=== PATIENT | female | born 1995 | race Caucasian/White ===

== ENCOUNTER 2018-11-26 07:45 | Day surgery (SDC) | payer OTHER ==
[~2018-11-26 07:45] MED LIST: PROPOFOL INJ 200 MG/20 ML VIAL IV ONE
[2018-11-26 10:28] VITALS: BP 112/61
--- NOTE | 2018-11-26 13:20 | Operative Report ---
Operative Report DATE OF SURGERY: 11/26/18 Operative Report: The risks benefits and alternatives of the procedure explained to the patient in detail and informed consent is obtained.A GIF Olympus video scope was inserted into the patient's mouth and hypopharynx, the esophagus is identified intubated and insufflated, the scope was then advanced through the esophagus stomach and duodenum ,retroflexion maneuver is done ,the esophagus stomach and first and second portions of the duodenum examined. PREOPERATIVE DIAGNOSIS: Dysphagia POSTOPERATIVE DIAGNOSIS: Esophagitis versus Galvez's status post biopsy. Gastritis status post biopsy rule out Helicobacter pylori OPERATION: EGD with biopsy SURGEON: PAXTON PATEL ANESTHESIA: LMAC TISSUE REMOVED OR ALTERED: As noted above. COMPLICATIONS: None. ESTIMATED BLOOD LOSS: None. INTRAOPERATIVE FINDINGS: As noted above. PROCEDURE: Patient tolerated the procedure well. No immediate postprocedure complications are noted. Patient discharged in good condition. Discharge date 11/26/2018. Discharge diet: Regular. Discharge activity: Regular. 2 to 3-week follow-up to discuss findings. Patient is instructed to call the office or proceed to the emergency room should there be any further proximal questions. Wait on the pathology.
== END 2018-11-26 10:13 | disposition home or self-care (01) ==
LOC: END 07:45
PROVIDERS: ATTEND Internal Medicine Gastroenterology
DX: K20.9 Esophagitis, unspecified (principal); K29.50 Unspecified chronic gastritis without bleeding; D64.9 Anemia, unspecified; J45.909 Unspecified asthma, uncomplicated
CPT/HCPCS: 43239; 88342 ×2; 88305 ×2; J2704; 731

== ENCOUNTER 2019-08-27 09:06 | Emergency (ER) | payer OTHER ==
[2019-08-27] MEDS ORDERED: NORMAL SALINE 1000 ML 1,000 ML IV ONE (09:59)
--- NOTE | 2019-08-27 09:59 | ER Document Report ---
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 She states she has passed out in the past from orthostatic hypotension. Her blood pressure is normal at this time. Patient is alert oriented respirations regular nonlabored. Her Accu-Chek is 81 at this time. I have greeted and performed a rapid initial assessment of this patient. A comprehensive ED assessment and evaluation of the patient, analysis of test results and completion of medical decision making process will be conducted by an additional ED providers. TRAVEL OUTSIDE OF THE [place] IN LAST 30 DAYS: No - Related Data Allergies/Adverse Reactions: No Known Allergies Allergy (Verified 11/26/18 08:16) Past Medical History - Social History Frequency of alcohol use: None Drug Abuse: None - Past Medical History Cardiac Medical History: Denies: Hx Coronary Artery Disease, Hx Heart Attack, Hx Hypertension Pulmonary Medical History: Denies: Hx Asthma, Hx Bronchitis, Hx COPD, Hx Pneumonia Neurological Medical History: Denies: Hx Cerebrovascular Accident, Hx Seizures Musculoskeltal Medical History: Denies Hx Arthritis - Immunizations Hx Diphtheria, Pertussis, Tetanus Vaccination: Yes Physical Exam - Vital signs Vitals: Temp Pulse Resp BP Pulse Ox 98.1 F 72 20 124/63 100 08/27/19 09:10 08/27/19 09:10 08/27/19 09:10 08/27/19 09:10 08/27/19 09:10 Course - Vital Signs Vital signs: Temp Pulse Resp BP Pulse Ox 98.1 F 72 20 124/63 100 08/27/19 09:10 08/27/19 09:10 08/27/19 09:10 08/27/19 09:10 08/27/19 09:10 Doctor's Discharge - Discharge Referrals: RAHAT KESSLER DO [Primary Care Provider] - Follow up as needed
[2019-08-27 11:02] LABS: APPEARANCE,URINE CLOUDY; BILIRUBIN,URINE NEGATIVE (NEGATIVE); COLOR,URINE YELLOW; GLUCOSE, URINE NEGATIVE (NEGATIVE); KETONES,URINE TRACE mg/dL (NEGATIVE); LEUKOCYTE ESTERASE,URINE TRACE (NEGATIVE); NITRITE,URINE NEGATIVE (NEGATIVE); PROTEIN,URINE 30 mg/dL (NEGATIVE); URINE SPECIFIC GRAVITY 1.026; UROBILINOGEN,URINE NEGATIVE mg/dL (<2.0)
[2019-08-27 11:03] LABS: ABSOLUTE LYMPHOCYTES (AUTO) 1.2 10^3/uL (0.5-4.7); ABSOLUTE MONOCYTES (AUTO) 0.8 10^3/uL (0.1-1.4); ABSOLUTE NEUT (AUTO) 7.9 10^3/uL (1.7-8.2); BASOPHILS % (AUTO) 0.2 % (0-2); EOSINOPHILS % (AUTO) 0.3 % (0-6); HEMATOCRIT 40.1 % (36.0-47.0); HEMOGLOBIN 14.4 g/dL (12.0-15.5); LYMPHOCYTES % (AUTO) 12.4 % (13-45); MEAN CORPUSCULAR HEMOGLOBIN 32.2 pg (27.0-33.4); MEAN CORPUSCULAR VOLUME 90 fl (80-97); MONOCYTES % (AUTO) 7.7 % (3-13); PLATELET COUNT 234 10^3/uL (150-450); RED BLOOD COUNT 4.48 10^6/uL (3.72-5.28); RED CELL DISTRIBUTION WIDTH 13.7 % (11.5-14.0); SEGMENTED NEUTROPHILS % (AUTO) 79.4 % (42-78); TOTAL CELLS COUNTED % (AUTO) 100 %
[2019-08-27 11:18] LABS: ALBUMIN 4.8 g/dL (3.5-5.0); ALKALINE PHOSPHATASE 54 U/L (38-126); ANION GAP 12 (5-19); ASPARTATE AMINO TRANSFERASE 27 U/L (14-36); BILIRUBIN,DIRECT 0.2 mg/dL (0.0-0.4); BILIRUBIN,TOTAL 0.4 mg/dL (0.2-1.3); BLOOD UREA NITROGEN 10 mg/dL (7-20); CARBON DIOXIDE 26 mmol/L (22-30); CHLORIDE 99 mmol/L (98-107); GLUCOSE 81 mg/dL (75-110); POTASSIUM 4.2 mmol/L (3.6-5.0); TOTAL PROTEIN 8.2 g/dL (6.3-8.2)
--- NOTE | 2019-08-27 12:18 | RADIOLOGY REPORT (SQ) ---
EXAM DESCRIPTION: U/S [id number] TRNABD 1GES W/ODOP COMPLETED DATE/TIME: 08/27/2019 12:04 pm REASON FOR STUDY: Syncopal episode COMPARISON: None. TECHNIQUE: Transvaginal static and realtime grayscale images acquired of the pelvis. Additional chance cted spectral and color Doppler images recorded. All images stored on PACs. bHCG: Not available. CLINICAL DATES: 11 weeks 6 days LIMITATIONS: None. FINDINGS: FETUS: Single Living intrauterine . ULTRASOUND EGA: 11 weeks 5 days. ULTRASOUND JUDITH: 03/12/2020 EFW: Not applicable less than 20 weeks. CRL: 5.0 cm. FHR: 150 beats per minute. SURVEY: No visualized anomalies. AMNIOTIC FLUID: Adequate amount. PLACENTA: Not yet developed due to early gestation. SUBCHORIONIC BLEED: No. SIZE OF BLEED: Not applicable. UTERUS: No masses. No anomalies. CERVICAL LENGTH: 3.4 cm. Closed. RIGHT ADNEXA: Ovary not identified due to poor acoustical window. No adnexal free fluid. No adnexal masses. LEFT ADNEXA: Ovary not identified due to poor acoustical window. No adnexal free fluid. No adnexal masses. FREE FLUID: None. OTHER: No other significant finding. IMPRESSION: LIVING INTRAUTERINE . EGA 11 weeks 5 days. Trimester of : First trimester - 0 to 13 weeks. TECHNICAL DOCUMENTATION: JOB ID: [id number] [employer]- All Rights Reserved rev Reading location - IP/workstation name: [email or web address]
[2019-08-27 13:04] VITALS: BP 117/69
--- NOTE | 2019-08-27 16:22 | EKG REPORT ---
SEVERITY:- OTHERWISE NORMAL ECG - SINUS ARRHYTHMIA, RATE 53-73 : Confirmed by: Edelmira Myles MD 27-Aug-2019 16:21:49
--- NOTE | 2019-08-27 18:03 | ER Document Report ---
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 Patient describes that she felt dizzy, light headed and does not remember anything until being in the hallway after the procedure. Butadiene Converter Helper stated that she was told patient was pale, diaphoretic and was "reaching back for the rail". They escorted her out of the room and she passed out. No reports of her falling down or hitting her head. Patient states that she has had normal fluid and food intake prior to incident. Patient denies headache, vertigo, and seizure history. Patient mentions history of vasovagal syncope starting at the age of 15. TRAVEL OUTSIDE OF THE [place] IN LAST 30 DAYS: No - Related Data Allergies/Adverse Reactions: No Known Allergies Allergy (Verified 11/26/18 08:16) Past Medical History - General Information source: Patient - Social History Smoking Status: Never Smoker Cigarette use (# per day): No Frequency of alcohol use: None Drug Abuse: None Family History: Reviewed & Not Pertinent Patient has suicidal ideation: No Patient has homicidal ideation: No Surgical Hx: Negative - Immunizations Hx Diphtheria, Pertussis, Tetanus Vaccination: Yes Review of Systems - Review of Systems Constitutional: See HPI, Diaphoresis - Prior to arrival EENT: No symptoms reported Cardiovascular: See HPI, Syncope, Lightheaded Respiratory: No symptoms reported Gastrointestinal: No symptoms reported Genitourinary: No symptoms reported Female Genitourinary: See HPI, - 11 weeks 5 days Musculoskeletal: No symptoms reported Skin: No symptoms reported Hematologic/Lymphatic: No symptoms reported Neurological/Psychological: See HPI, Lost consciousness -: Yes All other systems reviewed and negative Physical Exam - Vital signs Vitals: Temp Pulse Resp BP Pulse Ox 98.1 F 72 20 124/63 100 08/27/19 09:10 08/27/19 09:10 08/27/19 09:10 08/27/19 09:10 08/27/19 09:10 - Notes Notes: Physical Exam: General: Alert, appears well. HEENT: Normocephalic. Atraumatic. PERRL. Mild lateral gaze nystagmus. Oropharynx clear. TMs bulging worse on the right side than the left. Neck: Supple. Non-tender. Respiratory: No respiratory distress. Clear and equal breath sounds bilaterally. Cardiovascular: Regular rate and rhythm. Abdominal: Normal Inspection. Non-tender. No distension. Normal Bowel Sounds. Back: No gross abnormalities. Extremities: Moves all four extremities. Upper extremities: Normal inspection. Normal ROM. Lower extremities: Normal inspection. No edema. Normal ROM. Neurological: Normal cognition. AAOx4. Normal speech. Psychological: Normal affect. Normal Mood. Skin: Warm. Dry. Normal color. Course - Re-evaluation Re-evalutation: 08/27/19 12:39 Patient has remained stable since her event that occurred in the x-ray department today. 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 Patient felt weak and realizes she was about to faint and stepped out and she was surrounded by other staff members and so when she did lose consciousness she was being placed on a gurney there was no head injury no seizure activity. Aicha ayon regained her consciousness after a brief loss of consciousness moment. There was no tongue biting or sphincter incontinence denied any chest pain headache tachycardias or irregular heartbeats. Patient has had events of this nature in the past which seems to be not far into her. She reports that as far back as a 15 she is noted that on occasion she has these vasovagal syncope spells. - Vital Signs Vital signs: Temp Pulse Resp BP Pulse Ox 98.1 F 56 L 15 117/69 100 08/27/19 13:00 08/27/19 10:49 08/27/19 13:00 08/27/19 13:00 08/27/19 13:00 - Laboratory Result Diagrams: 08/27/19 10:40 08/27/19 10:40 Laboratory results interpreted by me: 08/27/19 08/27/19 08/27/19 10:30 10:40 10:40 Lymph % (Auto) 12.4 L Seg Neutrophils % 79.4 H Sodium 136.9 L Creatinine 0.43 L Urine Protein 30 H Urine Ketones TRACE H Ur Leukocyte Esterase TRACE H Urine Ascorbic Acid 40 H - Diagnostic Test Radiology reviewed: Image reviewed, Reports reviewed Radiology results interpreted by me: 08/27/19 12:38 Pelvic ultrasound disclosed normal gestation and to reveal intrauterine 11 weeks 5 days no other acute abnormality noted. - EKG Interpretation by Me Additional EKG results interpreted by me: 08/27/19 12:38 EKG 12-lead done at 1022 today normal sinus rhythm rate of [address]-T wave changes. Discharge - Discharge Clinical Impression: Syncope, vasovagal, First trimester , Labyrinthitis of both ears Condition: Stable Disposition: HOME, SELF-CARE Additional Instructions: Syncopal Episode Syncope (fainting or near-fainting) can occur from many different health problems. Or it can be a simple fainting spell requiring no treatment. It is safe for you to go home, but further evaluation will likely be necessary. Your work-up may include tests for internal bleeding, heart disease, medication problems, or near-strokes. Tests are not always required, however, depending on the nature of your problem. The warning signs of an impending faint include: dizziness, lightheadedness, nausea, hot flashes, tingling, and weakness. If this happens, lay down and put your feet up, then wait until all of these symptoms have passed before standing up again. If these episodes become recurrent, or if you develop chest pain, heart palpitations, mental confusion, blurred vision, or headache, then you should call the physician, or go to the emergency room. Today you had a vasovagal syncopal episode which was brief. There appears to be no cardiac event associated with this or any neurological event associated with this episode today. EKG neuro exam laboratories all within normal limits. No evidence for stroke on the neuro exam. No evidence for cardiac event on lab work or EKG. Much easier 11 weeks 5 days there was no consequence to your based on your event today. Ultrasound did not show any acute process. We also learned today that you have fluid behind your eardrums consistent with labyrinthitis. We did note that you have nystagmus on lateral gaze again this may have contributed as well to this vasovagal event that occurred today. Follow-up with your primary care and ROAD PATCHER a during regarding this episode. There was no sugar problem noted as well on your exam Inasmuch as you are at this time we are not adding any new prescriptions to your current medications are vitamins. Advised to be well-hydrated at all times. Referrals: RAHAT KESSLER, [NO LOCAL MD] - Follow up as needed ED NIH Stroke Scale - NIH Stroke Scale *: 1. NIH scale should be completed with appropriate accompanying assessment tools. *: 2. The NIH should reflect what the patient is capable of doing and should not be coached by the clinician. 1a. Level of Consciousness: 0=Alert;keenly responsive -: 1=Drowsy -: 2=Obtunded -: 3=Coma/unresponsive or reflex to noxious stimuli. 1b. Orientation Questions: a. What month is it? -: b. How old are you? -: 0=Answers both questions correctly. -: 1=Answers one question correctly or patient is intubated or has orotracheal trauma. -: 2=Answers neither question correctly. 1b. Responses: 0 1c. Response to commands: a. Open and close eyes? -: b. Embosser Apprentice and release hand? -: Credit is given despite weakness. Demonstration of task is permitted. Substitute command if hands cannot be used. -: 0=Performs both tasks correctly -: 1=Performs one task correctly -: 2=Performs neither task correctly 1c. Responses: 0 2. Gaze: Establish eye contact and instruct patient to "Follow my finger" -: 0=Normal -: 1=Partial gaze palsy. Gaze is abnormal in one or both eyes, but where forced deviation or total gaze paresis is not present. -: 2=Forced deviation or total gaze paresis. 2. Responses: 0 3. Visual Schaeffer: Sees fingers in all four quadrants. -: 0=No visual loss. -: 1=Partial hemianopsia. -: 2=Complete hemianopsia. -: 3=Bilateral hemianopsia (including Cortical blindness) 3. Responses: 0 4. Facial Movement: Instruct patient to: -: a. Show me your teeth -: b. Raise your eyebrows -: c. Close your eyes -: d. Smile -: 0=Normal symmetrical movement -: 1=Minor paralysis (flattened nasolabial fold, asymmetry on smiling). -: 2=Partial paralysis (total or near total paralysis of lower face). -: 3=Complete paralysis of upper and lower face 4. Responses: 0 5. Motor functions (left arm): Alternate sides and extend each arm with palms down (90 degrees if sitting or 45 degrees for supine). -: 0=No drift;limb holds for full 10 seconds. -: 1=Drift; limb holds but drifts down before full 10 seconds, but does not hit bed. -: 2=Some effort against gravity; limb cannot get to or maintain position. -: 3=No effort against gravity; limb falls. -: 4=No movement. -: UN=Amputation, joint fusion, explain in comments. 5. Responses (left arm): 0 5. Motor Functions (right arm): Alternate sides and extend each arm with palms down (90 degrees if sitting or 45 degrees for supine). -: 0=No drift;limb holds for full 10 seconds. -: 1=Drift; limb holds but drifts down before full 10 seconds, but does not hit bed. -: 2=Some effort against gravity; limb cannot get to or maintain position. -: 3=No effort against gravity; limb falls. -: 4=No movement. -: UN=Amputation, joint fusion, explain in comments. 5. Responses (right arm): 0 6. Motor Functions (left leg): With patient lying supine, alternate sides and extend each leg (30 degrees always while supine). -: 0=No drift, leg holds position for full 5 seconds -: 1=Drift; leg falls before full 5 seconds but does not hit bed. -: 2=Some effort against gravity, leg falls to bed but some effort against gravity. -: 3=No effort against gravity, leg falls to bed immediately. -: 4=No movement. -: UN=Amputation, joint fusion; explain in comments. 6. Responses (left leg): 0 6. Motor Functions (right leg): With patient lying supine, alternate sides and extend each leg (30 degrees always while supine). -: 0=No drift, leg holds position for full 5 seconds -: 1=Drift; leg falls before full 5 seconds but does not hit bed. -: 2=Some effort against gravity, leg falls to bed but some effort against gravity. -: 3=No effort against gravity, leg falls to bed immediately. -: 4=No movement. -: UN=Amputation, joint fusion; explain in comments. 6. Responses (right leg): 0 7. Limb Ataxia: With eyes open instruct patient to: -: a. "Touch your finger to your nose". -: b. "Touch your heel to your lassiter" -: 0=Absent -: 1=Present in one limb. -: 2=Present in two limbs. -: UN=Amputation or joint fusion; explain in comments. 7. Responses: 0 8. Sensory: Test sensation using pinprick or noxious stimuli. Test as many body parts as possible. -: 0=Normal;no sensory loss -: 1=Mile to moderate sensory loss (patient feels pin prick but is less sharp on affected side). -: 2=Severe or total sensory loss. 8. Responses: 0 9. Best Language: Instruct patient to: -: a. "Describe what you see in this picture." -: b. "Name the items in this picture." -: c. "Read these sentences." -: 0=No aphasia, normal -: 1=Mild to moderate aphasia. -: 2=Severe aphasia -: 3=Mute, global aphasia, no usable speech or auditory comprehension. 9. Responses: 0 10. Articulation, Dysarthia: Instruct patient to: -: "Read these words" or "Repeat these words" -: 0=Normal -: 1=Mild to moderate; patient may slur some words but can be understood without difficulty. -: 2=Severe; patients speech so slurred as to be unintelligible in the absence of dysphasia. -: UN=Intubated or other physical barrier, explain in comments. 10. Responses: 0 11. Extinction or inattention: 0=No abnormality -: 1= Visual, tactile, auditory, spatial, or personal inattention or extinction to bilateral simulation in one or the sensory modalities. -: 2=Profound carol-inattention or carol-inattention to more than one modality; does not recognize own hand. 11. Responses: 0 Total Score: 0 I personally performed the services described in the documentation, reviewed and edited the documentation which was dictated to the scribe in my presence, and it accurately records my words and actions.
== END 2019-08-27 13:15 | disposition home or self-care (01) ==
LOC: ER 09:06
DX: O26.891 Other specified pregnancy related conditions, first trimester (principal); R55 Syncope and collapse; H83.03 Labyrinthitis, bilateral; R42 Dizziness and giddiness; H55.00 Unspecified nystagmus; Z3A.11 11 weeks gestation of pregnancy
CPT/HCPCS: 93005; 99284; 96360; 36415; 82962; 85025; 80053; 81001; 84484; 76801; 93010; J7030

== ENCOUNTER 2020-01-16 19:59 | Outpatient (CLI) | payer OTHER ==
[2020-01-16 20:47] LABS: BACTERIA (WET MOUNT) 4+ BACTERIA SEEN; EPITHELIALS (WET MOUNT) 3+ EPITHELIALS SEEN; RBCS (WET MOUNT) FEW RBCS SEEN; T.VAGINALIS (WET MOUNT) NO TRICHOMONAS SEEN; WBCS (WET MOUNT) 3+ WBCS SEEN; YEAST (WET MOUNT) NO YEAST SEEN
[2020-01-16 20:48] LABS: APPEARANCE,URINE CLEAR; BILIRUBIN,URINE NEGATIVE (NEGATIVE); COLOR,URINE STRAW; GLUCOSE, URINE 50 mg/dL (NEGATIVE); KETONES,URINE NEGATIVE (NEGATIVE); LEUKOCYTE ESTERASE,URINE NEGATIVE (NEGATIVE); NITRITE,URINE NEGATIVE (NEGATIVE); PROTEIN,URINE NEGATIVE (NEGATIVE); URINE SPECIFIC GRAVITY 1.005; UROBILINOGEN,URINE NEGATIVE mg/dL (<2.0)
[2020-01-16 21:13] LABS: URINE AMPHETAMINES SCREEN NEGATIVE; URINE BARBITURATES SCREEN NEGATIVE; URINE BENZODIAZEPINES SCREEN NEGATIVE; URINE COCAINE SCREEN NEGATIVE; URINE MARIJUANA (THC) SCREEN NEGATIVE; URINE METHADONE SCREEN NEGATIVE; URINE PHENCYCLIDINE SCREEN NEGATIVE
[2020-01-16] MEDS ORDERED: FOSFOMYCIN TROMETHAMINE 3 GM PACKET PO ONE (21:45)
[2020-01-16 22:12] LABS: CHLAM PCR NOT DETECTED (NOT DETECT)
== END 2020-01-16 21:30 | disposition home or self-care (01) ==
LOC: LC 19:59
PROVIDERS: ATTEND Obstetrics & Gynecology Gynecology
DX: O26.853 Spotting complicating pregnancy, third trimester (principal); Z3A.32 32 weeks gestation of pregnancy
CPT/HCPCS: 36415; 80307; 81001; 87081; 87086; 87210; 87491; 87591

== ENCOUNTER 2020-01-29 00:36 | Outpatient (CLI) | payer OTHER ==
[2020-01-29 01:16] LABS: APPEARANCE,URINE CLEAR; BILIRUBIN,URINE NEGATIVE (NEGATIVE); COLOR,URINE YELLOW; GLUCOSE, URINE NEGATIVE (NEGATIVE); KETONES,URINE 20 mg/dL (NEGATIVE); LEUKOCYTE ESTERASE,URINE NEGATIVE (NEGATIVE); NITRITE,URINE NEGATIVE (NEGATIVE); PROTEIN,URINE NEGATIVE (NEGATIVE); URINE SPECIFIC GRAVITY 1.013; UROBILINOGEN,URINE NEGATIVE mg/dL (<2.0)
--- NOTE | 2020-01-29 01:57 | Non Stress Test Report ---
Non Stress Test Datetime Report Generated by CPN: 01/29/2020 01:57 DEMOGRAPHIC EGA NST: 33.5 MONITORING Monitor Explained: Monitor Explained; Test Explained; Patient Verbalized Understanding Time on Monitor: 01/29/2020 00:51 Time off Monitor: 01/29/2020 01:51 NST Duration: 60 NST INTERVENTIONS NST Interventions: PO Hydration; Reposition Patient Physician Notified NST: Dr Bk BABY A: [id number] BABY A Movement : Present Contraction Frequency : 0 FHR Baseline : 120 Accelerations : 15X15 Decelerations : None Variability : Moderate 6-25bpm NST Review: Meets Criteria for Reactive NST NST Review and Verified By : , RN NST Results: Reactive NST REPORT Report Trigger: Send Report
[2020-01-29 02:02] LABS: URINE AMPHETAMINES SCREEN NEGATIVE; URINE BARBITURATES SCREEN NEGATIVE; URINE BENZODIAZEPINES SCREEN NEGATIVE; URINE COCAINE SCREEN NEGATIVE; URINE MARIJUANA (THC) SCREEN NEGATIVE; URINE METHADONE SCREEN NEGATIVE; URINE PHENCYCLIDINE SCREEN NEGATIVE
== END 2020-01-29 01:56 | disposition home or self-care (01) ==
LOC: LC 00:36
PROVIDERS: ATTEND Obstetrics & Gynecology
DX: O36.8130 Decreased fetal movements, third trimester, not applicable or unspecified (principal); Z3A.33 33 weeks gestation of pregnancy
CPT/HCPCS: 80307; 81001

== ENCOUNTER 2020-03-18 07:04 | Inpatient (IN) | payer OTHER ==
[2020-03-18] MEDS ORDERED: OXYTOCIN/0.9 % SODIUM CHLORIDE 30 UNIT/500 ML RTUINJ IV PRN (07:18)
[2020-03-18] MEDS ORDERED: DINOPROSTONE 10 MG VAGINAL INSERT.SR PV PRN (07:18)
[2020-03-18 07:44] LABS: APPEARANCE,URINE CLOUDY; BILIRUBIN,URINE NEGATIVE (NEGATIVE); COLOR,URINE YELLOW; GLUCOSE, URINE NEGATIVE (NEGATIVE); KETONES,URINE NEGATIVE (NEGATIVE); LEUKOCYTE ESTERASE,URINE SMALL (NEGATIVE); NITRITE,URINE NEGATIVE (NEGATIVE); PROTEIN,URINE NEGATIVE (NEGATIVE); URINE SPECIFIC GRAVITY 1.016; UROBILINOGEN,URINE NEGATIVE mg/dL (<2.0)
[2020-03-18] MEDS ORDERED: LIDOCAINE 1% INJ-PF (10 MG/ML) 30 ML SDV ONE (07:58)
[2020-03-18] MEDS ORDERED: OXYTOCIN/0.9 % SODIUM CHLORIDE 30 UNIT/500 ML RTUINJ ONE (07:58)
[2020-03-18] MEDS ORDERED: OXYTOCIN 10 UNIT/ML VIAL ONE (07:58)
[2020-03-18] MEDS ORDERED: MISOPROSTOL 0.2 MG TABLET ONE (07:58)
[2020-03-18] MEDS ORDERED: DINOPROSTONE 10 MG VAGINAL INSERT.SR ONE (07:59)
[2020-03-18 08:04] LABS: URINE AMPHETAMINES SCREEN NEGATIVE; URINE BARBITURATES SCREEN NEGATIVE; URINE BENZODIAZEPINES SCREEN NEGATIVE; URINE COCAINE SCREEN NEGATIVE; URINE MARIJUANA (THC) SCREEN NEGATIVE; URINE METHADONE SCREEN NEGATIVE; URINE PHENCYCLIDINE SCREEN NEGATIVE
[2020-03-18 08:07] LABS: HEMATOCRIT 38.2 % (36.0-47.0); HEMOGLOBIN 13.3 g/dL (12.0-15.5); MEAN CORPUSCULAR HGB CONC 34.7 g/dL (32.0-36.0); MEAN CORPUSCULAR VOLUME 89 fl (80-97); PLATELET COUNT 211 10^3/uL (150-450); RED BLOOD COUNT 4.28 10^6/uL (3.72-5.28); RED CELL DISTRIBUTION WIDTH 15.3 % (11.5-14.0); WHITE BLOOD COUNT 8.7 10^3/uL (4.0-10.5)
[2020-03-18] MEDS: RINGERS SOLUTION,LACTATED 1,000 ML IV PRN ×2 (09:02→14:34)
--- NOTE | 2020-03-18 13:02 | Admission Physical ---
Datetime Report Generated by CPN: 03/18/2020 13:02 CURRENT ADMISSION Hx Assessment: The History has been Reviewed and is Current Chief Complaint: Scheduled Induction of Labor Indication for Induction: Post Dates Admit Impression : Term, Intrauterine Admit Plan: Admit to Unit; Initiate Labor Induction Protocol ALLERGIES Medication Allergies: No Medication Allergies: No Known Allergies (03/18/2020) Latex: No Latex Allergies OBSTETRICAL HISTORY EDC: 03/13/2020 00:00 : 1 Para: 0 Term: 0 : 0 SAB: 0 IAB: 0 Ectopic: 0 Livin Cesareans: 0 VBACs: 0 Multiple Births: 0 Gestational Diabetes: No Rh Sensitization: No Incompetent Cervix: No NICOLE: No Infertility: No ART Treatment: No Uterine Anomaly: No IUGR: No Hx Previous C/S: No Hx Loss/Stillborn: No PIH: No Hx : No Placenta Previa/Abruption: No Depression/PP Depression: Yes PTL/PROM: No Post Hemorrhage: No Current Procedures: Ultrasound; NST Obstetrical History Comments: Primigravida, Sees psychology . [facility] 9+1 SEE RECORDS Cigarettes: Never Smoker. [id number] Advised to Stop: No MEDICAL HISTORY Diabetes: No Blood Transfusion: No Pulmonary Disease (Asthma, TB): No Breast Disease: No Hypertension: No Post Doctoral Researcher Surgery: No Heart Disease: No Hosp/Surgery: No Autoimmune Disorder: No Anesthetic Complications: No Kidney Disease: No Abnormal Pap Smear: No Neuro/Epilepsy: Yes Psychiatric Disorders: Yes Other Medical Diseases: Yes Hepatitis/Liver Disease: No Significant Family History: Yes Varicosities/Phlebitis: No Trauma/Violence : No Thyroid Dysfunction: No Medical History Comments: h/o bulemia, TBI 2008, 2010 and 2013, mother last year. Restless leg syndrome. IBS, Insulin resistance and ADHD INFECTIOUS HISTORY Gonorrhea: No Genital Herpes: No Chlamydia: No Tuberculosis: No Syphilis: No Hepatitis: No HIV/AIDS Exposure: No HPV: No PHYSICAL EXAM General: Normal Neurologic: Normal Heart: Normal Lungs: Normal Vital Signs: Reviewed; Within Normal Limits VAGINAL EXAM Contraction Comments: irregular MEMBRANES Membranes: Intact FETUS A EGA: 40.5 Monitoring: External US Decelerations: None FHR Category: Category I Estimated Weight (gm): 4127 Presentation: Vertex Admit Comment: 24yo G1 @ 40w5d into L_D for IOL. Pt is A neg, RI, GBS negative. complicated by hx of TBI x3, Restless leg syndrome, IBS, ADHD and insulin resistance. Pt with elevated 1hr GTT in and normal 3hr. Also hx of bulemia. Plan was to have cervidil placed last night but patient was not admitted until this am at which time cervidil was placed by RN. Cephalic presentation verified via U/S. Dr. Bourgeois is the OB regional wildlife agent today and aware of admission and pt status. PLANS FOR LABOR AND DELIVERY Labor and Delivery: None Pain Management: Medications Feeding Preference: Breast INFORMED CONSENT Assignment: Misti Bourgeois MD Signature: with User ID: Rip : with User ID: [email or web address]
[2020-03-18] MEDS ORDERED: MISOPROSTOL 0.1 MG TABLET ONE ×2 (20:18→21:27)
[2020-03-18] MEDS ORDERED: MISOPROSTOL 0.1 MG TABLET PO ONE (21:15)
[2020-03-18] MEDS ORDERED: MISOPROSTOL 0.1 MG TABLET PV ONE (21:16)
[2020-03-18] MEDS ORDERED: ZOLPIDEM TARTRATE 5 MG TABLET ONE ×2 (22:58→22:59)
[2020-03-18] MEDS ORDERED: ZOLPIDEM TARTRATE 5 MG TABLET PO ONE (23:10)
[2020-03-18] MEDS ORDERED: NALBUPHINE HCL INJ 10 MG/1 ML AMPULE ONE (23:25)
[2020-03-18] MEDS ORDERED: PROMETHAZINE HCL INJ 25 MG/1 ML VIAL ONE (23:25)
[2020-03-18] MEDS ORDERED: PROMETHAZINE HCL INJ 25 MG/1 ML VIAL IV ONE (23:59)
[2020-03-18] MEDS ORDERED: NALBUPHINE HCL INJ 10 MG/1 ML AMPULE INJ ONE (23:59)
[2020-03-19] MEDS ORDERED: EPHEDRINE SULFATE INJ 50 MG/1 ML AMPULE ONE ×2 (02:32→05:31)
[2020-03-19] MEDS ORDERED: ROPIVACAINE HCL 0.2% INJ/PF (2 MG/ML) 20 ML SDV ONE (02:33)
[2020-03-19] MEDS ORDERED: FENTANYL/BUPIVACAINE/NS/PF 300 MCG/150 ML RTUINJ EPI ONE (02:33)
[2020-03-19] MEDS ORDERED: MISOPROSTOL 0.2 MG TABLET ONE (02:34)
[2020-03-19] MEDS ORDERED: OXYTOCIN 10 UNIT/ML VIAL ONE ×2 (02:34→05:31)
[2020-03-19] MEDS ORDERED: OXYTOCIN/0.9 % SODIUM CHLORIDE 0 UNIT/0 ML RTUINJ ONE (02:35)
[2020-03-19] MEDS ORDERED: LIDOCAINE 1% INJ-PF (10 MG/ML) 30 ML SDV ONE (02:35)
[2020-03-19] MEDS ORDERED: CEFAZOLIN 2 GM/D5W RTU 2 GM/50 ML RTUPB IV ONE (05:18)
[2020-03-19] MEDS ORDERED: CITRIC ACID/SODIUM CITRATE ORAL SOLN 15 ML UDCUP ONE (05:18)
[2020-03-19] MEDS ORDERED: KETOROLAC TROMETHAMINE INJ/PF 30 MG/1 ML SDV ONE (05:31)
[2020-03-19] MEDS ORDERED: FENTANYL CITRATE INJ/PF 100 MCG/2 ML AMPUL ONE (05:31)
[2020-03-19] MEDS ORDERED: OXYTOCIN/0.9 % SODIUM CHLORIDE 30 UNIT/500 ML RTUINJ ONE (05:32)
[2020-03-19] MEDS ORDERED: ACETAMINOPHEN 1,000 MG/100 ML RTUPB IV ONE (05:32)
[2020-03-19] MEDS ORDERED: ONDANSETRON HCL INJ/PF 4 MG/2 ML SDV ONE (05:32)
[2020-03-19] MEDS ORDERED: MIDAZOLAM 2 MG/2 ML INJ ONE (05:32)
[2020-03-19] MEDS ORDERED: LIDOCAINE 2% INJ-PF (20 MG/ML) 10 ML AMPUL ONE (05:33)
[2020-03-19] MEDS ORDERED: METHYLERGONOVINE MALEATE INJ/PF 0.2 MG/1 ML AMPULE ONE (05:34)
[2020-03-19] MEDS ORDERED: OXYTOCIN/0.9 % SODIUM CHLORIDE 30 UNIT/500 ML RTUINJ IV PRN (06:23)
[2020-03-19] MEDS ORDERED: SIMETHICONE 80 MG TAB.CHEW PO PRN (06:23)
[2020-03-19] MEDS ORDERED: MEASLES,MUMPS&RUBELLA VACC/PF 0.5 ML VIAL SUBCUT PRN (06:23)
[2020-03-19] MEDS ORDERED: RINGERS SOLUTION,LACTATED 1,000 ML IV PRN (06:23)
[2020-03-19] MEDS ORDERED: ACETAMINOPHEN 325 MG TABLET PO PRN (06:23)
[2020-03-19] MEDS ORDERED: ACETAMINOPHEN 1 GM/100 ML RTUPB IV PRN (06:23)
[2020-03-19] MEDS ORDERED: DIPH/PERTUSS(ACELL)/TETANUS VAC/PF 0.5 ML SYR (>=10YO) IM PRN (06:23)
[2020-03-19] MEDS ORDERED: PROMETHAZINE HCL INJ 25 MG/1 ML VIAL IV PRN (06:23)
--- NOTE | 2020-03-19 06:30 | Operative Report ---
Operative Report DATE OF SURGERY: 03/19/20 PREOPERATIVE DIAGNOSIS: IUP at 40 weeks and 5 days, nonreassuring heart t ones POSTOPERATIVE DIAGNOSIS: Same OPERATION: Primary low transverse hysterotomy section SURGEON: GLENN MEJIAS ANESTHESIA: Epidural COMPLICATIONS: None ESTIMATED BLOOD LOSS: 800 cc INTRAOPERATIVE FINDINGS: Male cephalic presentation, body cord wrapped around each arm thick meconium, Apgars 7 8, mild extension of uterine incision into the lower uterine segment and cervical canal PROCEDURE: PROCEDURE IN DETAIL: The patient was taken to the operating room, prepared and draped in a normal sterile fashion in a supine position with a leftward tilt. A transverse skin incision was made with a scalpel and carried through to the underlying layer of fascia with the same scalpel. The fascia was excised in the midline and extended laterally with Caroline. The fascia was then dissected from the rectus muscle sharply with Caroline and the rectus muscle was divided and the peritoneal cavity was entered sharply with the same Metzenbaum. With good visualization of the bladder and the uterus the bladder blade was inserted. The hysterotomy was nicked with a scalpel and extended laterally with surgeon finger fraction. The was then delivered atraumatically. The nose and mouth were suctioned with a suction bulb, the cord was clamped and cut and handed off to awaiting pediatricians. Cord blood was collected. The placenta was removed manually. The uterus was exteriorized and cleared of clots and debris. The hysterotomy was closed with 0 Monocryl in a running, locked fashion. A second layer of the same suture was used to imbricate to ensure hemostasis. The uterus was returned to the abdomen and peritoneal cavity was cleared of clots and debris. The rectus muscle and peritoneum were repaired with mattress stitch of 2-0 Chromic. The fascia was closed with 0-Vicryl. The subcutaneous layer was closed with plain catgut and the skin was closed with 4-0 Vicryl. The patient tolerated the procedure well. Sponge, lap, and needle counts correct x2 and the patient was taken to recovery in stable condition.
[2020-03-19] MEDS: DOCUSATE SODIUM 100 MG CAPSULE PO SCH ×2 (10:14→17:19)
[2020-03-19] MEDS: OXYCODONE-ACETAMINOPHEN 5-325 MG TABLET PO PRN ×3 (10:14→20:22)
[2020-03-19] MEDS: PRENATAL VITAMIN W DHA CAPSULE PO SCH (10:14)
[2020-03-19] MEDS: MORPHINE SULFATE 10 MG/ML INJ IV PRN (12:43)
[2020-03-19] MEDS: RINGERS SOLUTION,LACTATED 1,000 ML IV PRN (12:44)
[2020-03-19] MEDS: KETOROLAC TROMETHAMINE INJ/PF 30 MG/1 ML SDV IV SCH ×2 (13:56→22:24)
[2020-03-20] MEDS: MORPHINE SULFATE 10 MG/ML INJ IV PRN (01:14)
[2020-03-20] MEDS: KETOROLAC TROMETHAMINE INJ/PF 30 MG/1 ML SDV IV SCH (05:30)
[2020-03-20 08:05] LABS: HEMATOCRIT 33.6 % (36.0-47.0); HEMOGLOBIN 11.6 g/dL (12.0-15.5); MEAN CORPUSCULAR HEMOGLOBIN 30.9 pg (27.0-33.4); MEAN CORPUSCULAR HGB CONC 34.5 g/dL (32.0-36.0); MEAN CORPUSCULAR VOLUME 90 fl (80-97); PLATELET COUNT 196 10^3/uL (150-450); RED BLOOD COUNT 3.74 10^6/uL (3.72-5.28); WHITE BLOOD COUNT 13.1 10^3/uL (4.0-10.5)
[2020-03-20] MEDS: PRENATAL VITAMIN W DHA CAPSULE PO SCH (11:04)
[2020-03-20] MEDS: OXYCODONE-ACETAMINOPHEN 5-325 MG TABLET PO PRN ×3 (11:05→20:38)
[2020-03-20] MEDS: DOCUSATE SODIUM 100 MG CAPSULE PO SCH ×2 (11:05→17:58)
[2020-03-20] MEDS ORDERED: IBUPROFEN 800 MG TABLET PO SCH (12:00)
--- NOTE | 2020-03-20 15:27 | PDOC PROGRESS REPORT ---
Subjective-OB Progress Note for:: 03/20/20 Subjective: reports bleeding slowing, pain controlled with current meds. denies needs Physical Exam (OB) Vital Signs: Temp Pulse Resp BP Pulse Ox 98.0 F 65 17 134/75 H 99 03/20/20 11:23 03/20/20 11:23 03/20/20 11:23 03/20/20 11:23 03/20/20 11:23 Intake & Output 03/19/20 03/20/20 03/21/20 06:59 06:59 06:59 Intake Total 1692 1480 840 Output Total 1950 Balance 1692 -470 840 Weight 105.5 kg - Dressing Removed: No Incision: Dressing - intact - Maternal Morbidity 59. Maternal Morbidity (serious complications experinced by the mother associated with labor and delivery: None of the above - Abdomen Description: Soft Hernia Present: No Fundal Description: Firm, Midline Fundal Height: u/u - u/2 - Abdominal Distension: No distension - Extremities Lower extremities: Ainsley's sign - neg Calf: Normal, Nontender Objective-Diagnostic Laboratory: 03/20/20 07:31 03/20/20 03/20/20 07:31 07:31 WBC 13.1 H RBC 3.74 Hgb 11.6 L Hct 33.6 L MCV 90 MCH 30.9 MCHC 34.5 RDW 15.0 H Plt Count 196 Blood Type A NEGATIVE Assessment and Plan(PN) - Time Spent with Patient Time with patient: Less than 15 minutes - Disposition Anticipated Discharge Disposition: Home, Self Care Anticipated Discharge Timeframe: within 48 hours
[2020-03-20] MEDS: IBUPROFEN 800 MG TABLET PO SCH (20:36)
[2020-03-21] MEDS: OXYCODONE-ACETAMINOPHEN 5-325 MG TABLET PO PRN (00:23)
[2020-03-21] MEDS: IBUPROFEN 800 MG TABLET PO SCH ×2 (03:34→09:31)
[2020-03-21] MEDS: DOCUSATE SODIUM 100 MG CAPSULE PO SCH (09:31)
[2020-03-21] MEDS: PRENATAL VITAMIN W DHA CAPSULE PO SCH (09:31)
[2020-03-21 11:40] VITALS: BP 130/82
--- NOTE | 2020-03-21 11:40 | PDOC DISCHARGE SUMMARY ---
Impression - Admit/DC Date/PCP Admission Date/Primary Care Provider: 03/18/20 07:04 NE ANDERSON PA-C Discharge Date: 03/21/20 - Discharge Diagnosis (1) Encounter for induction of labor Is this a current diagnosis for this admission?: Yes (2) Non-reassuring electronic monitoring tracing Is this a current diagnosis for this admission?: Yes (3) S/P primary low transverse Is this a current diagnosis for this admission?: Yes - Additional Information Discharge Diet: Regular Discharge Activity: Balance Activity w/Rest, No Lifting Over 10 Pounds, No Lifting/Push/Pulling, Pelvic Rest, No tub bath Referrals: NE ANDERSON PA-C [Primary Care Provider] - Prescriptions: Ibuprofen [Motrin 800 mg Tablet] 800 mg PO Q8HP PRN #90 tablet PRN Reason: Oxycodone HCl/Acetaminophen [Percocet 5-325 mg Tablet] 1 tab PO Q4HP PRN #30 tablet PRN Reason: Vit/Dha [ Multi + Dha Capsule] 1 cap PO DAILY #90 capsule Home Medications: Ibuprofen [Motrin 800 mg Tablet] 800 mg PO Q8HP PRN #90 tablet 03/21/20 Oxycodone HCl/Acetaminophen [Percocet 5-325 mg Tablet] 1 tab PO Q4HP PRN #30 tablet 03/21/20 Vit/Dha [ Multi + Dha Capsule] 1 cap PO DAILY #90 capsule 03/21/20 Hospital Course 59. Maternal Morbidity (serious complications experinced by the mother associated with labor and delivery: None of the above Results Laboratory Results: WBC 13.1 10^3/uL (4.0-10.5) H 03/20/20 07:31 RBC 3.74 10^6/uL (3.72-5.28) 03/20/20 07:31 Hgb 11.6 g/dL (12.0-15.5) L 03/20/20 07:31 Hct 33.6 % (36.0-47.0) L 03/20/20 07:31 MCV 90 fl (80-97) 03/20/20 07:31 MCH 30.9 pg (27.0-33.4) 03/20/20 07:31 MCHC 34.5 g/dL (32.0-36.0) 03/20/20 07:31 RDW 15.0 % (11.5-14.0) H 03/20/20 07:31 Plt Count 196 10^3/uL (150-450) 03/20/20 07:31 Urine Color YELLOW 03/18/20 07:20 Urine Appearance CLOUDY 03/18/20 07:20 Urine pH 6.0 (5.0-9.0) 03/18/20 07:20 Ur Specific [place] 1.016 03/18/20 07:20 Urine Protein NEGATIVE mg/dL (NEGATIVE) 03/18/20 07:20 Urine Glucose (UA) NEGATIVE mg/dL (NEGATIVE) 03/18/20 07:20 Urine Ketones NEGATIVE mg/dL (NEGATIVE) 03/18/20 07:20 Urine Blood NEGATIVE (NEGATIVE) 03/18/20 07:20 Urine Nitrite NEGATIVE (NEGATIVE) 03/18/20 07:20 Urine Bilirubin NEGATIVE (NEGATIVE) 03/18/20 07:20 Urine Urobilinogen NEGATIVE mg/dL (<2.0) 03/18/20 07:20 Ur Leukocyte Esterase SMALL (NEGATIVE) H 03/18/20 07:20 Urine Ascorbic Acid NEGATIVE (NEGATIVE) 03/18/20 07:20 Urine Opiates Screen NEGATIVE 03/18/20 07:20 Urine Methadone Screen NEGATIVE 03/18/20 07:20 Ur Barbiturates Screen NEGATIVE 03/18/20 07:20 Ur Phencyclidine Scrn NEGATIVE 03/18/20 07:20 Ur Amphetamines Screen NEGATIVE 03/18/20 07:20 U Benzodiazepines Scrn NEGATIVE 03/18/20 07:20 Urine Cocaine Screen NEGATIVE 03/18/20 07:20 U Marijuana (THC) Screen NEGATIVE 03/18/20 07:20 RPR NONREACTIVE (NONREACTIVE) 03/18/20 07:45 Blood Type A NEGATIVE 03/20/20 07:31 Antibody Screen POSITIVE 03/18/20 07:45 Antibody Identification RHOGAM INDUCED ANTI-D 03/18/20 07:45 Screen NEGATIVE 03/20/20 07:31 Plan Plan of Treatment: follow up in one week at [facility] for incision check
--- NOTE | 2020-03-24 13:57 | Delivery Summary ---
Del Sum A-C Datetime Report Generated by CPN: 03/24/2020 13:56 DELIVERY PERSONNEL DELIVERY PERSONNEL: [id number] Delivery Doctor:: Misti Bourgeois MD ENVIRONMENTAL TECHNOLOGY PROFESSOR:: Ino Callahan CRNA Labor and Delivery Nurse:: Anjali Foster RNfreelance writer Nurse:: Beverley Keane RN Laundry Housekeeping Aide:: Beverley Keane RN Biometric Screener/LAND MANAGEMENT SUPERVISOR: ST Manuel Biometric Screener/LAND MANAGEMENT SUPERVISOR: Edwige Magaña ST MATERNAL INFORMATION Delivery Anesthesia: Epidural Medications After Delivery: Pitocin 30 Units in 500ml NS/D5W Delivery QBL: 390 Maternal Complications: None LABOR SUMMARY EDC: 03/13/2020 00:00 No. Babies in Womb: 1 Attempted: No Labor Anesthesia: Epidural LABOR INFORMATION Reason for Induction: Post Dates Onset of Labor: 03/19/2020 03:44 Complete Dilatation: 03/19/2020 04:58 Cervical Ripening Agents: Cervidil Oxytocin: N/A Group B Beta Strep: 1 NO GROUP B STREPTOCOCCUS RECOVERED Antibiotics # of Doses: n/a Steroids Given: None Reason Steroids Not Administered: Not Applicable MEMBRANES Membranes Rupture Method: Spontaneous Rupture of Membranes: 03/19/2020 01:22 Length of Rupture (hr): 4.38 Amniotic Fluid Color: Clear Amniotic Fluid Amount: Moderate STAGES OF LABOR Stage 1 hr: 1 Stage 1 min: 14 Stage 2 hr: 0 Stage 2 min: 47 Stage 3 hr: 0 Stage 3 min: 1 Total Time in Labor hr: 2 Total Time in Labor min: 2 VAGINAL DELIVERY Episiotomy: None Laceration #1: None Laceration Extension #1: N/A Sponge Count Correct: N/A Sharps Count Correct: N/A CSECTION DELIVERY Primary Indication: Nonreassuring Status Secondary Indication: N/A CSection Urgency: Non-Scheduled CSection Incidence: Primary Labor: Labor Elective: Nonelective CSection Incision: Lower Uterine Transverse BABY A INFORMATION Infant Delivery Date/Time: 03/19/2020 05:45 Method of Delivery: Nurse Controlled Delivery: No Born in Route : No : N/A Forceps: N/A Vacuum Extraction: N/A Shoulder Dystocia : No PRESENTATION/POSITION BABY A Presentation: Cephalic Cephalic Presentation: Vertex Breech Presentation: N/A PLACENTA INFORMATION BABY A Placenta Delivery Time : 03/19/2020 05:46 Placenta Method of Delivery: Manual Removal Placenta Status: Delivered SCORES BABY A Heart Rate 1 min: >100 bpm Resp Effort 1 min: Good Cry Reflex Irritability 1 min: Cough or Sneeze or Pulls Away Muscle Tone 1 min: Some Flexion of Extremities Color 1 min: Blue/Pale Resuscitation Effort 1 min: Tactile Stimulation; Oxygen; PPV/NCPAP SCORE 1 MIN: 7 Heart Rate 5 min: >100 bpm Resp Effort 5 min: Good Cry Reflex Irritability 5 min: Cough or Sneeze or Pulls Away Muscle Tone 5 min: Active Motion Color 5 min: Blue/Pale SCORE 5 MIN: 8 INFORMATION BABY A Gestational Age at Delivery: 40.6 Gestational Status: Full Term- 39- 40.6 Weeks Outcome : Liveborn Condition : Stable Infant Sex: Male IDENTIFICATION BABY A Infant Verification Date/Time: 03/19/2020 06:05 ID Band Number: [id number] Mother's Name Verified: Yes RN Verifying Infant: Emma Keane RN Additional Verifying Personnel: Fredi Corral RN WEIGHT/LENGTH BABY A Infant Birthweight (gm): 3790 Infant Weight (lb): 8 Infant Weight (oz): 6 Length (in): 20.00 Infant Length (cm): 50.80 CORD INFORMATION BABY A No. Cord Vessels: 3 Nuchal Cord- Other: tight body cord Cord Blood Taken: Yes-For Eval (Mom's Blood Type - or O+) Suction: None; Mouth ASSESSMENT BABY A Skin to Skin: No BABY B INFORMATION : N/A
== END 2020-03-21 13:00 | disposition home or self-care (01) | DRG 788 ==
LOC: LR 07:04 → 2S 03-19 08:30
PROVIDERS: ADMIT Obstetrics & Gynecology; ATTEND Obstetrics & Gynecology
PROC: 10D00Z1 Extraction of Products of Conception, Low, Open Approach (ICD-10-PCS; principal; 2020-03-19)
PROC: 3E0234Z Introduction of Serum, Toxoid and Vaccine into Muscle, Percutaneous Approach (ICD-10-PCS; 2020-03-20)
DX: O48.0 Post-term pregnancy (principal); O76 Abnormality in fetal heart rate and rhythm complicating labor and delivery; O69.82X0 Labor and delivery complicated by other cord entanglement, without compression, not applicable or unspecified; O26.893 Other specified pregnancy related conditions, third trimester; F90.9 Attention-deficit hyperactivity disorder, unspecified type; O99.344 Other mental disorders complicating childbirth; G25.81 Restless legs syndrome; O99.824 Streptococcus B carrier state complicating childbirth; K58.9 Irritable bowel syndrome, unspecified; O99.613 Diseases of the digestive system complicating pregnancy, third trimester; E88.81 Metabolic syndrome and other insulin resistance; O69.2XX0 Labor and delivery complicated by other cord entanglement, with compression, not applicable or unspecified; Z67.11 Type A blood, Rh negative; Z3A.40 40 weeks gestation of pregnancy; Z37.0 Single live birth
CPT/HCPCS: 1967; 1968; 36415; 80307; 81005; 85027; 85461; 86592; 86850; 86870; 86900; 86901; 94760; 94799; 99140; J0131; J0690; J1885; J2210; J2250; J2270; J2300; J2405; J2550; J2590; J2790; J2795; J3010; J3490; J7120

== ENCOUNTER 2020-03-24 14:17 | Observation (INO) | payer OTHER ==
[2020-03-24] MEDS ORDERED: ACETAMINOPHEN 325 MG TABLET PO ONE (14:45)
--- NOTE | 2020-03-24 14:48 | ER Document Report ---
ED Medical Screen (RME) - General Chief Complaint: Shortness Of Breath Stated Complaint: POST PROBLEM Time Seen by Provider: 03/24/20 14:39 Primary Care Provider: EN ANDERSON PA-C [Primary Care Provider] - Follow up as needed Mode of Arrival: Wheelchair Information source: Patient Notes: HPI; 24-year-old female 5 days from a presents to the emergency room planing of right shoulder pain that radiates to her right upper quadrant also complains of shortness of breath. States unable to move secondary to pain. Took Motrin at 7 AM this morning took a Percocet just prior to arrival. Subjective fever. PE: Alert and oriented x3. Moderate distress noted. Lungs diminished on the right. Heart: Tachycardic without murmurs, rubs, gallops. Unable to do full exam in triage. I have greeted and performed a rapid initial assessment of this patient. A comprehensive ED assessment and evaluation of the patient, analysis of test results and completion of the medical decision making process will be conducted by additional ED providers. I have specifically instructed the patient or family members with the patient to immediately return to any nursing staff should anything change in the patient's condition or with their chief complaint. TRAVEL OUTSIDE OF THE [place] IN LAST 30 DAYS: No - Related Data Allergies/Adverse Reactions: No Known Allergies Allergy (Verified 03/18/20 07:18) Home Medications: , folic acid, ibuprophen 800, percocet 5/325 Past Medical History - Social History Frequency of alcohol use: None - Past Medical History Cardiac Medical History: Denies: Hx Coronary Artery Disease, Hx Heart Attack, Hx Hypertension Pulmonary Medical History: Denies: Hx Asthma, Hx Bronchitis, Hx COPD, Hx Pneumonia Neurological Medical History: Denies: Hx Cerebrovascular Accident, Hx Seizures Musculoskeltal Medical History: Denies Hx Arthritis - Immunizations Hx Diphtheria, Pertussis, Tetanus Vaccination: Yes Physical Exam - Vital signs Vitals: Temp Pulse Resp BP Pulse Ox 100.3 F 100 24 H 149/95 H 98 03/24/20 14:28 03/24/20 14:28 03/24/20 14:28 03/24/20 14:28 03/24/20 14:28 Course - Vital Signs Vital signs: Temp Pulse Resp BP Pulse Ox 100.3 F 100 20 149/95 H 98 03/24/20 14:38 03/24/20 14:38 03/24/20 14:38 03/24/20 14:38 03/24/20 14:38 Doctor's Discharge - Discharge Referrals: NE ANDERSON PA-C [Primary Care Provider] - Follow up as needed
[2020-03-24 15:22] LABS: HEMATOCRIT 39.6 % (36.0-47.0); HEMOGLOBIN 13.6 g/dL (12.0-15.5); MEAN CORPUSCULAR HEMOGLOBIN 30.6 pg (27.0-33.4); MEAN CORPUSCULAR HGB CONC 34.4 g/dL (32.0-36.0); MEAN CORPUSCULAR VOLUME 89 fl (80-97); PLATELET COUNT 349 10^3/uL (150-450); RED BLOOD COUNT 4.47 10^6/uL (3.72-5.28); RED CELL DISTRIBUTION WIDTH 14.9 % (11.5-14.0); WHITE BLOOD COUNT 22.3 10^3/uL (4.0-10.5)
--- NOTE | 2020-03-24 15:25 | ER Document Report ---
ED General - General Chief Complaint: Shortness Of Breath Stated Complaint: POST PROBLEM Time Seen by Provider: 03/24/20 14:39 Primary Care Provider: NE ANDERSON PA-C [Primary Care Provider] - Follow up as needed Mode of Arrival: Wheelchair Information source: Patient, Relative Notes: Patient is a 24-year-old female presenting to the emergency department chief complaint of right upper quadrant pain and shortness of breath that began this morning. Patient states that yesterday she had some right shoulder pain today when she got up in the morning it was hard to sit up because of the right upper quadrant pain. Patient states she is short of breath because every time she takes a deep breath it hurts in the right upper quadrant. Patient is 5 days pos top from emergency . She states it was an emergency because of a nuchal cord. Patient denies travel history trauma history sick contacts no bad food exposure. TRAVEL OUTSIDE OF THE [place] IN LAST 30 DAYS: No - HPI Onset: Yesterday Onset/Duration: Sudden Quality of pain: Throbbing Severity: Moderate Pain Level: 3 Associated symptoms: Hurts to breath, Shortness of breath Exacerbated by: Movement, Walking, Coughing, Deep breathing Relieved by: Denies Similar symptoms previously: No Recently seen / treated by doctor: Yes - Related Data Allergies/Adverse Reactions: No Known Allergies Allergy (Verified 03/18/20 07:18) Home Medications: , folic acid, ibuprophen 800, percocet 5/325 Past Medical History - General Information source: Patient - Social History Smoking Status: Never Smoker Chew tobacco use (# tins/day): No Frequency of alcohol use: None Drug Abuse: None Lives with: Family Family History: Reviewed & Not Pertinent Patient has suicidal ideation: No Patient has homicidal ideation: No - Past Medical History Cardiac Medical History: Denies: Hx Coronary Artery Disease, Hx Heart Attack, Hx Hypertension Pulmonary Medical History: Denies: Hx Asthma, Hx Bronchitis, Hx COPD, Hx Pneumonia Neurological Medical History: Denies: Hx Cerebrovascular Accident, Hx Seizures Musculoskeletal Medical History: Denies Hx Arthritis, Reports Hx Musculoskeletal Trauma Psychiatric Medical History: Reports: Hx Anxiety, Hx Attention Deficit Hyperactivity Disorder, Hx Depression - Immunizations Hx Diphtheria, Pertussis, Tetanus Vaccination: Yes Review of Systems - Review of Systems Notes: REVIEW OF SYSTEMS: CONSTITUTIONAL : Denies fever, chills, or sweats. Denies recent illness. EENT: Denies eye, ear, throat, or mouth pain or symptoms. Denies nasal or sinus congestion. CARDIOVASCULAR: Denies chest pain. RESPIRATORY: Per HPI GASTROINTESTINAL: Per HPI GENITOURINARY: Denies difficulty urinating, painful urination, burning, frequency, or blood in urine. MUSCULOSKELETAL: Per HPI SKIN: Denies rash or skin lesions. HEMATOLOGIC : Denies easy bruising or bleeding. NEUROLOGICAL: Denies altered mental status or loss of consciousness. Denies headache. Denies weakness or paralysis or loss of use of either side. Denies problems with gait or speech. Denies sensory or motor loss. PSYCHIATRIC: Denies suicidal or homicidal ideations 10 Systems are negative unless otherwise specified above Physical Exam - Vital signs Vitals: Temp Pulse Resp BP Pulse Ox 100.3 F 100 24 H 149/95 H 98 03/24/20 14:28 03/24/20 14:28 03/24/20 14:28 03/24/20 14:28 03/24/20 14:28 - Notes Notes: PHYSICAL EXAMINATION: GENERAL: Well-appearing, well-nourished and in no acute distress. HEAD: Atraumatic, normocephalic. EYES: Pupils equal round and reactive to light, extraocular movements intact, sclera anicteric, conjunctiva are normal. ENT: nares patent, oropharynx clear without exudates. Moist mucous membranes. NECK: Normal range of motion, supple without lymphadenopathy, no appreciable JVD LUNGS: Lungs clear to auscultation bilaterally and equal. No wheezes rales or rhonchi. However deep inspiration causes a pain response and this is making the patient short of breath. HEART: Regular rate and rhythm without murmurs ABDOMEN: EXTREMITIES: Active full range of motion, no pitting or edema. No cyanosis. 2+ pulses x4 NEUROLOGICAL: No focal neurological deficits. Moves all extremities spontaneously and on command. SKIN: Warm, Dry, and intact. Normal turgor, no rashes or lesions noted. Course - Re-evaluation Re-evalutation: 03/24/20 18:31 On reevaluation the patient is resting in hospital bed she is still complaining of right upper quadrant abdominal pain that was not alleviated with the Tylenol. At this point patient will be given 4 mg IV morphine 4 mg IV Zofran while she is awaiting ultrasound of the gallbladder. 03/24/20 22:03 Patient has remained stable and on a cardiac rn. Patient has been reevaluated multiple times while in emergency department. I was able to speak with Dr. Boateng PAPER BAG MACHINE OPERATOR on-call and she is agreeable with taking the patient and admission for abdominal pain and leukocytosis. Patient is 5 days post and she feels this is a reasonable option. She states that she will examine the patient and determine antibiotics once she reaches the floor. I did speak with the patient she is agreeable with care plan. - Vital Signs Vital signs: Temp Pulse Resp BP Pulse Ox 99 F 100 28 H 135/87 H 99 03/24/20 18:18 03/24/20 14:38 03/24/20 19:18 03/24/20 18:16 03/24/20 19:18 - Laboratory Result Diagrams: 03/24/20 14:58 03/24/20 14:58 Laboratory results interpreted by me: 03/24/20 03/24/20 03/24/20 14:58 14:58 14:58 WBC 22.3 H RDW 14.9 H Seg Neuts % (Manual) 94 H Lymphocytes % (Manual) 4 L Monocytes % (Manual) 2 L Abs Neuts (Manual) 21.0 H Sodium 135.4 L AST 65 H ALT 110 H Alkaline Phosphatase 137 H Urine Protein 30 H Urine Blood LARGE H Ur Leukocyte Esterase TRACE H - Diagnostic Test Radiology reviewed: Reports reviewed Discharge - Discharge Clinical Impression: Abdominal pain Qualifiers: Abdominal location: right upper quadrant Qualified Code(s): R10.11 - Right upper quadrant pain Leukocytosis Qualifiers: Leukocytosis type: unspecified Qualified Code(s): D72.829 - Elevated white blood cell count, unspecified Condition: Stable Disposition: ADMITTED OBSERVATION Admitting Provider: Tasneem Vaughn Admitted: Labor and Delivery Referrals: NE ANDERSON PA-C [Primary Care Provider] - Follow up as needed
[2020-03-24 15:27] LABS: APPEARANCE,URINE CLEAR; BILIRUBIN,URINE NEGATIVE (NEGATIVE); COLOR,URINE YELLOW; GLUCOSE, URINE NEGATIVE (NEGATIVE); KETONES,URINE NEGATIVE (NEGATIVE); LEUKOCYTE ESTERASE,URINE TRACE (NEGATIVE); NITRITE,URINE NEGATIVE (NEGATIVE); PROTEIN,URINE 30 mg/dL (NEGATIVE); URINE SPECIFIC GRAVITY 1.014; UROBILINOGEN,URINE NEGATIVE mg/dL (<2.0)
[2020-03-24 15:42] LABS: ALBUMIN 4.1 g/dL (3.5-5.0); ALKALINE PHOSPHATASE 137 U/L (38-126); ANION GAP 10 (5-19); ASPARTATE AMINO TRANSFERASE 65 U/L (14-36); BILIRUBIN,DIRECT 0.3 mg/dL (0.0-0.4); BILIRUBIN,TOTAL 0.6 mg/dL (0.2-1.3); BLOOD UREA NITROGEN 16 mg/dL (7-20); CALCIUM 9.4 mg/dL (8.4-10.2); CARBON DIOXIDE 22 mmol/L (22-30); CHLORIDE 103 mmol/L (98-107); GLUCOSE 106 mg/dL (75-110); POTASSIUM 3.8 mmol/L (3.6-5.0); TOTAL PROTEIN 7.5 g/dL (6.3-8.2)
[2020-03-24 15:55] LABS: ABSOLUTE LYMPHOCYTES# (MANUAL) 0.9 10^3/uL (0.5-4.7); ABSOLUTE MONOCYTES # (MANUAL) 0.4 10^3/uL (0.1-1.4); ANISOCYTOSIS SLIGHT; BASOPHILS % (MANUAL) 0 % (0-2); EOSINOPHILS % (MANUAL) 0 % (0-6); LYMPHOCYTES % (MANUAL) 4 % (13-45); MONOCYTES % (MANUAL) 2 % (3-13); PLATELET COMMENT ADEQUATE; SEGMENTED NEUTROPHILS % (MAN) 94 % (42-78); TOTAL CELLS COUNTED 100
[2020-03-24 15:57] LABS: PLATELET LARGE PRESENT; POLYCHROMASIA SLIGHT
[2020-03-24] MEDS ORDERED: NORMAL SALINE 1000 ML 1,000 ML IV ONE (16:22)
--- NOTE | 2020-03-24 17:48 | RADIOLOGY REPORT (SQ) ---
EXAM DESCRIPTION: CTA CHEST IMAGES COMPLETED DATE/TIME: 03/24/2020 5:26 pm REASON FOR STUDY: dyspnea COMPARISON: None. TECHNIQUE: CT scan of the chest performed using helical scanning technique with dynamic intravenous contrast injection. Images reviewed with lung, soft tissue and bone windows. Reconstructed coronal and sagittal MPR images reviewed. Additional 3 dimensional post-processing performed to develop Maximal Intensity Projection images (CT P). All images stored on PACS. All CT scanners at this facility use dose modulation, iterative reconstruction, and/or weight based d osing when appropriate to reduce radiation dose to as low as reasonably achievable (ALARA). [facility]: Dose Right [facility]: CareDose [facility]: Dose Right [facility]: Teradose 4D [facility]: Subtech CONTRAST TYPE AND DOSE: 100 mL Omnipaque 350- low osmolar. Contrast bolus adequate for pulmonary arteries and aorta. RENAL FUNCTION: BUN 16 creatinine 0.58c RADIATION DOSE: CT Rad equipment meets quality standard of care and radiation dose reduction techniq ues were employed. CTDIvol: 21.6 - 28.3 mGy. DLP: 2771 mGy-cm. . LIMITATIONS: None. FINDINGS: LUNGS AND PLEURA: No masses, infiltrates, or pneumothorax. No pleural effusions or pleura l calcifications. AORTA AND GREAT VESSELS: No aneurysm. No dissection. HEART: No pericardial effusion. No significant coronary artery calcifications. PULMONARY ARTERIES: No emboli visualized in the main pulmonary arteries or the segmental branches. HILAR AND MEDIASTINAL STRUCTURES: No identified masses or abnormal nodes. HARDWARE: None in the chest. UPPER ABDOMEN: See separate report of the CT of the abdomen. THYROID AND OTHER SOFT TISSUES: No masses. No adenopathy. BONES: No significant findings. 3D MIPS: Confirm above findings. OTHER: No other significant finding. IMPRESSION: NORMAL CTA OF THE CHEST. NO PULMONARY EMBOLI. COMMENT: Quality ID # [id number]: Final reports with documentation of one or more dose reduction techniques (e.g., Automated exposure control, adjustment of the mA and/or kV according to patient size, use of iterative reconstruction technique) TECHNICAL DOCUMENTATION: JOB ID: [id number] 2010 [employer]- All Rights Reserved Reading location - IP/workstation name: [email or web address]
--- NOTE | 2020-03-24 17:56 | RADIOLOGY REPORT (SQ) ---
EXAM DESCRIPTION: CTA ABDOMEN/PELVIS W WO IMAGES COMPLETED DATE/TIME: 03/24/2020 5:26 pm REASON FOR STUDY: abdominal pain COMPARISON: None. TECHNIQUE: CT scan of the abdominal aorta extending to the iliac bifurcation performed with intraven ous contrast using helical scanning technique with dynamic intravenous contrast injection. Images rev iewed with lung, soft tissue, and bone windows. Reconstructed coronal and sagittal MPR images reviewe d. All images stored on PACS. Advanced 3D imaging as volume rendering, MIPS, SSD performed? yes All CT scanners at this facility use dose modulation, iterative reconstruction, and/or weight based d osing when appropriate to reduce radiation dose to as low as reasonably achievable (ALARA). [facility]: Dose Right [facility]: CareDose [facility]: Dose Right [facility]: Teradose 4D [facility]: Ailvxing net CONTRAST TYPE AND DOSE: contrast/concentration: Isovue 350.00 mmol/ml; Total Contrast Delivered: 100 .0 ml; Total Saline Delivered: 42.9 ml RENAL FUNCTION: BUN 16 creatinine 0.58 LIMITATIONS: None. FINDINGS: AORTA AND VESSELS: No aneurysm. No dissection. Renal arteries, SMA, celiac without stenosi s. LUNG BASES: See separate report for CTA of the chest. LIVER: Normal size. No masses or dilated ducts. SPLEEN: Normal size. No focal lesions. PANCREAS: No masses. No significant calcifications. No adjacent inflammation or peripancreatic fluid collections. Pancreatic duct not dilated. GALLBLADDER: No identified stones by CT criteria. No inflammatory changes to suggest cholecystitis. ADRENAL GLANDS: No significant masses or asymmetry. RIGHT KIDNEY AND URETER: No mass, calculi or urinary tract obstruction. LEFT KIDNEY AND URETER: No mass, calculi or urinary tract obstruction. RETROPERITONEUM: No retroperitoneal adenopathy, hemorrhage or masses. BOWEL AND PERITONEAL CAVITY: No masses or inflammatory changes. No free fluid or peritoneal masses. APPENDIX: Not identified. PELVIS: The uterus is enlarged. Urinary bladder is normal. No abnormal pelvic mass or fluid collec tion. ABDOMINAL WALL: No masses. No hernias. BONY STRUCTURES: No significant or acute findings. 3-D IMAGING: Confirms the above findings. OTHER: No other significant finding. IMPRESSION: No abdominal aortic aneurysm or dissection. Enlarged uterus. No significant acute find ings in the abdomen or pelvis. TECHNICAL DOCUMENTATION: JOB ID: [id number] Quality ID # [id number]: Final reports with documentation of one or more dose reduction techniques (e.g., Au tomated exposure control, adjustment of the mA and/or kV according to patient size, use of iterative reconstruction technique) 2010 [employer]- All Rights Reserved Reading location - IP/workstation name: [email or web address]
[2020-03-24] MEDS ORDERED: MORPHINE SULFATE 10 MG/ML INJ IV ONE (18:30)
[2020-03-24] MEDS ORDERED: ONDANSETRON HCL INJ/PF 4 MG/2 ML SDV IV ONE ×2 (18:30→21:04)
--- NOTE | 2020-03-24 20:17 | RADIOLOGY REPORT (SQ) ---
EXAM DESCRIPTION: US ABDOMEN LIMITED COMPLETED DATE/TME: 03/24/2020 18:07 CLINICAL HISTORY: 24 years, Female, RUQ Pain COMPARISON: CT abdomen pelvis from today. FINDINGS: Gallbladder distended. No stones or wall thickening. Negative Modi sign. No evidence for biliary dilatation. Common bile duct is 4 mm. Right kidney and pancreas are unremarkable. No suspicious hepatic lesions. IMPRESSION: Distended gallbladder without obvious additional biliary abnormality.
[2020-03-24] MEDS ORDERED: KETOROLAC TROMETHAMINE INJ/PF 30 MG/1 ML SDV IV ONE (21:04)
[2020-03-24] MEDS ORDERED: ONDANSETRON HCL INJ/PF 4 MG/2 ML SDV IV PRN (23:07)
[2020-03-24] MEDS ORDERED: MORPHINE SULFATE 10 MG/ML INJ IV PRN (23:11)
[2020-03-25] MEDS ORDERED: AMPICILLIN SOD/SULBACTAM 3 GM VIAL IV PRN
[2020-03-25] MEDS ORDERED: FAMOTIDINE INJ/PF 20 MG/2 ML SDV IV ONE (00:15)
[2020-03-25] MEDS: AMPICILLIN SODIUM/SULBACTAM NA 3 GM in NORMAL SALINE 100 ML IV SCH ×4 (01:34→17:56)
[2020-03-25] MEDS: OXYCODONE-ACETAMINOPHEN 5-325 MG TABLET PO PRN ×4 (01:56→14:01)
--- NOTE | 2020-03-25 03:56 | PDOC H&P ---
History of Present Illness Admission Date/PCP: 03/24/20 22:22 NE ANDERSON PA-C History of Present Illness: CHAO WONG is a 24 year old female who is 6 days post after primary c esarean delivery. She presented to the emergency department chief complaint of right upper quadrant pain and shortness of breath that began this morning. Patient states that yesterday she had some right shoulder pain and she thought she strained it or pulled something. Then today when she got up in the morning it was hard to sit up because of the right upper quadrant pain. Patient states she is short of breath because every time she takes a deep breath it hurts in the right upper quadrant. Patient is 5 days postop from emergency . She states it was an emergency because of a nuchal cord. Patient denies travel history trauma history sick contacts no bad food exposure. She reports a temp at home of 100 F and felt chills. She denies bowel issues and states last bowel movement was on Monday night.NO diarrhea . Did not strain. Reports it felt different when she voided today: burning. Denies vomiting but when pain is bad she feels nausea. Reports vaginal bleeding like a period. It has not increased. No purulent VD Past Medical History LMP: 5 days post Cardiac Medical History: Denies: Coronary Artery Disease, Myocardial Infarction, Hypertension Pulmonary Medical History: Denies: Asthma, Bronchitis, Chronic Obstructive Pulmonary Disease (COPD), Pneumonia Neurological Medical History: Denies: Seizures Musculoskeltal Medical History: Denies: Arthritis Psychiatric Medical History: Reports: Attention Deficit Hyperactivity Disorder, Depression Past Surgical History Past Surgical History: Reports: Section Social History Lives with: Family Smoking Status: Never Smoker Family History Family History: Reviewed & Not Pertinent Parental Family History Reviewed: Yes Children Family History Reviewed: Yes Sibling(s) Family History Reviewed.: Yes Medication/Allergy Home Medications: Ibuprofen [Motrin 800 mg Tablet] 800 mg PO Q8HP PRN #90 tablet 03/21/20 Oxycodone HCl/Acetaminophen [Percocet 5-325 mg Tablet] 1 tab PO Q4HP PRN #30 tablet 03/21/20 Vit/Dha [ Multi + Dha Capsule] 1 cap PO DAILY #90 capsule 03/21/20 Allergies/Adverse Reactions: No Known Allergies Allergy (Verified 03/18/20 07:18) Review of Systems Constitutional: PRESENT: chills, fever(s) Respiratory: PRESENT: as per HPI Gastrointestinal: PRESENT: as per HPI - no diarrhea, constipation, heart burn, vomiting, abdominal pain Genitourinary: PRESENT: dysuria Musculoskeletal: PRESENT: as per HPI Integumentary: ABSENT: rash, wounds Neurological: ABSENT: abnormal gait, abnormal speech, confusion, dizziness, focal weakness, syncope Psychiatric: ABSENT: anxiety, depression, homidical ideation, suicidal ideation Endocrine: ABSENT: cold intolerance, heat intolerance, polydipsia, polyuria Physical Exam - Physical Exam Vital Signs: Temp Pulse Resp BP Pulse Ox 99.6 F 82 18 130/77 H 100 03/25/20 00:57 03/25/20 00:57 03/25/20 00:57 03/25/20 00:57 03/25/20 00:57 Intake & Output 03/23/20 03/24/20 03/25/20 06:59 06:59 06:59 Weight 100.8 kg General appearance: PRESENT: no acute distress, cooperative, disheveled, other - Looks tired Head exam: PRESENT: atraumatic, normocephalic Respiratory exam: PRESENT: clear to auscultation brionna Cardiovascular exam: PRESENT: RRR, +S1, +S2 GI/Abdominal exam: PRESENT: distended, normal bowel sounds, soft, tenderness - tender to palpation in RUQ, epigastric region and RLQ. No rebound or guarding Extremities exam: PRESENT: calf tenderness Neurological exam: PRESENT: awake, oriented to person, oriented to place, oriented to time, oriented to situation Psychiatric exam: PRESENT: appropriate affect Result Laboratory Results: 03/24/20 14:58 03/24/20 14:58 03/24/20 03/24/20 03/24/20 14:58 14:58 14:58 WBC 22.3 H RBC 4.47 Hgb 13.6 Hct 39.6 MCV 89 MCH 30.6 MCHC 34.4 RDW 14.9 H Plt Count 349 Seg Neutrophils % Not Reportable Sodium 135.4 L Potassium 3.8 Chloride 103 Carbon Dioxide 22 Anion Gap 10 BUN 16 Creatinine 0.58 Est GFR ( Amer) > 60 Glucose 106 Calcium 9.4 Total Bilirubin 0.6 AST 65 H Alkaline Phosphatase 137 H Total Protein 7.5 Albumin 4.1 Urine Color YELLOW Urine Appearance CLEAR Urine pH 7.0 Ur Specific [place] 1.014 Urine Protein 30 H Urine Glucose (UA) NEGATIVE Urine Ketones NEGATIVE Urine Blood LARGE H Urine Nitrite NEGATIVE Ur Leukocyte Esterase TRACE H Urine WBC (Auto) 9 Urine RBC (Auto) 94 Impressions: Abdomen/Pelvis CTA 03/24/20 14:43 IMPRESSION: No abdominal aortic aneurysm or dissection. Enlarged uterus. No significant acute findings in the abdomen or pelvis. Chest/Abdomen CTA 03/24/20 14:43 IMPRESSION: NORMAL CTA OF THE CHEST. NO PULMONARY EMBOLI. Abdomen Ultrasound 03/24/20 18:07 IMPRESSION: Distended gallbladder without obvious additional biliary abnormality. Assessment & Plan - Diagnosis (1) Fever of unknown origin following delivery, Is this a current diagnosis for this admission?: Yes (2) Right upper quadrant pain Is this a current diagnosis for this admission?: Yes (3) Epigastric pain Is this a current diagnosis for this admission?: Yes (4) Right lower quadrant abdominal pain Is this a current diagnosis for this admission?: Yes (5) Abdominal pain Qualifiers: Abdominal location: right upper quadrant Qualified Code(s): R10.11 - Right upper quadrant pain Is this a current diagnosis for this admission?: Yes (6) Leukocytosis Qualifiers: Leukocytosis type: unspecified Qualified Code(s): D72.829 - Elevated white blood cell count, unspecified Is this a current diagnosis for this admission?: Yes (7) S/P primary low transverse Is this a current diagnosis for this admission?: Yes - Time Critical Time spent with patient: Less than 15 minutes Medications reviewed and adjusted accordingly: Yes Anticipated Discharge Disposition: Home, Self Care Anticipated Discharge Timeframe: within 48 hours Disposition: stable - Plan Summary Plan Summary: 24 yo with fever unknown origin during period. She is s/p Primary CS 5 days ago. Pain RUQ, epigastric and RLQ -Tmax 100.3 in ED on arrival. Other VSS -exam: CS dry and intact with no redness or erythema. Period type bleeding: no purulent VD. Pain on palpation RUQ, epigastric and RLQ -Labs show elevated WBC 22 . UA possible UTI -CT chest negative. CT abdomen negative except mildly enlarged uterus which is expected post and distended gall bladder. WIll consult general surgery -Unasyn 3gms ordered q 6 hrs -blood cultures obtained. - IVFs: LR at 125 cc/hr -Repeat labs in AM -Plan for antibiotics, blood and urine cultures. Will consult general surgery to check GB. -Pain medications ordered.
[2020-03-25] MEDS: IBUPROFEN 800 MG TABLET PO SCH ×3 (06:22→22:06)
[2020-03-25] MEDS ORDERED: AMPICILLIN SOD/SULBACTAM 3 GM VIAL IV ONE (07:30)
[2020-03-25 09:03] LABS: HEMATOCRIT 36.7 % (36.0-47.0); HEMOGLOBIN 12.5 g/dL (12.0-15.5); MEAN CORPUSCULAR HEMOGLOBIN 30.6 pg (27.0-33.4); MEAN CORPUSCULAR HGB CONC 33.9 g/dL (32.0-36.0); MEAN CORPUSCULAR VOLUME 90 fl (80-97); PLATELET COUNT 321 10^3/uL (150-450); RED BLOOD COUNT 4.07 10^6/uL (3.72-5.28); RED CELL DISTRIBUTION WIDTH 14.9 % (11.5-14.0); WHITE BLOOD COUNT 17.2 10^3/uL (4.0-10.5)
[2020-03-25 09:24] LABS: ABSOLUTE LYMPHOCYTES# (MANUAL) 0.7 10^3/uL (0.5-4.7); ABSOLUTE MONOCYTES # (MANUAL) 0.5 10^3/uL (0.1-1.4); BASOPHILS % (MANUAL) 0 % (0-2); EOSINOPHILS % (MANUAL) 1 % (0-6); LYMPHOCYTES % (MANUAL) 4 % (13-45); MONOCYTES % (MANUAL) 3 % (3-13); SEGMENTED NEUTROPHILS % (MAN) 92 % (42-78); TOTAL CELLS COUNTED 100
[2020-03-25 09:25] LABS: ANISOCYTOSIS SLIGHT; PLATELET COMMENT ADEQUATE
[2020-03-25 09:26] LABS: ALBUMIN 3.3 g/dL (3.5-5.0); ALKALINE PHOSPHATASE 117 U/L (38-126); ANION GAP 10 (5-19); ASPARTATE AMINO TRANSFERASE 38 U/L (14-36); BILIRUBIN,DIRECT 0.3 mg/dL (0.0-0.4); BILIRUBIN,TOTAL 0.7 mg/dL (0.2-1.3); BLOOD UREA NITROGEN 12 mg/dL (7-20); CALCIUM 8.7 mg/dL (8.4-10.2); CARBON DIOXIDE 23 mmol/L (22-30); CHLORIDE 104 mmol/L (98-107); GLUCOSE 174 mg/dL (75-110); POTASSIUM 3.3 mmol/L (3.6-5.0); TOTAL PROTEIN 6.2 g/dL (6.3-8.2)
[2020-03-25] MEDS: FAMOTIDINE INJ/PF 20 MG/2 ML SDV IV SCH ×2 (10:13→22:07)
[2020-03-25] MEDS: RINGERS SOLUTION,LACTATED 1,000 ML IV PRN ×2 (12:01→22:07)
[2020-03-25] MEDS ORDERED: BISACODYL 5 MG TABEC PO ONE (13:58)
[2020-03-25] MEDS ORDERED: LIDOCAINE 2% VISCOUS SOLN 15 ML UDCUP PO ONE (14:00)
--- NOTE | 2020-03-25 14:16 | PDOC CONSULTATION ---
Consultation Consult Date: 03/25/20 Provider Consulted: SURGICAL SURGICALIST Consult reason:: right upper quadrant pain History of Present Illness Admission Date/PCP: 03/24/20 22:22 NE ANDERSON PA-C History of Present Illness: CHAO WONG is a 24 year old female seen in consultation at the request of Dr. Hunter. The patient is 6 days status post delivery. She is being treated for endometritis. 2 days ago, she began having sharp, stabbing right upper quadrant abdominal pain. The pain is constant and severe. Nothing makes it better. Breathing makes it worse. The pain radiates into her right shoulder. This morning she ate [place] toast and eggs without any difficulty. She denies nausea or vomiting. Her last bowel movement was 2 days ago. She does report right upper quadrant pain/chest pain, that radiates into her right shoulder. She also reports shortness of breath, fevers, and chills. She does report constipation. She denies nausea, vomiting, headache. She has been taking p.o. ibuprofen at home, as well as Percocet. She has never had any symptoms like this before. Past Medical History Cardiac Medical History: Denies: Coronary Artery Disease, Myocardial Infarction, Hypertension Pulmonary Medical History: Denies: Asthma, Bronchitis, Chronic Obstructive Pulmonary Disease (COPD), Pn eumonia Neurological Medical History: Denies: Seizures Musculoskeltal Medical History: Denies: Arthritis Psychiatric Medical History: Reports: Attention Deficit Hyperactivity Disorder, Depression Hematology: Reports: Anemia Past Surgical History Past Surgical History: Reports: Section Social History Lives with: Family Smoking Status: Never Smoker Electronic Cigarette use?: No Frequency of Alcohol Use: None Hx Recreational Drug Use: No Drugs: None Hx Prescription Drug Abuse: No Family History Family History: Reviewed & Not Pertinent Parental Family History Reviewed: Yes Children Family History Reviewed: Yes Sibling(s) Family History Reviewed.: Yes Medication/Allergy Home Medications: Ibuprofen [Motrin 800 mg Tablet] 800 mg PO Q8HP PRN #90 tablet 03/21/20 Oxycodone HCl/Acetaminophen [Percocet 5-325 mg Tablet] 1 tab PO Q4HP PRN #30 tablet 03/21/20 Vit/Dha [ Multi + Dha Capsule] 1 cap PO DAILY #90 capsule 03/21/20 Allergies/Adverse Reactions: No Known Allergies Allergy (Verified 03/18/20 07:18) Review of Systems Constitutional: PRESENT: chills, fever(s). ABSENT: anorexia, weakness Eyes: ABSENT: visual disturbances Ears: ABSENT: hearing changes Nose, Mouth, and Throat: ABSENT: sore throat Cardiovascular: PRESENT: chest pain, dyspnea on exertion Respiratory: PRESENT: dyspnea. ABSENT: cough Gastrointestinal: PRESENT: abdominal pain, bloating. ABSENT: nausea, vomiting Genitourinary: ABSENT: dysuria Musculoskeletal: PRESENT: back pain Integumentary: ABSENT: pruritus, rash Neurological: ABSENT: confusion, convulsions, dizziness Psychiatric: ABSENT: anxiety, depression Endocrine: PRESENT: cold intolerance. ABSENT: heat intolerance Hematologic/Lymphatic: ABSENT: easy bleeding, easy bruising Physical Exam Vital Signs: Temp Pulse Resp BP Pulse Ox 97.8 F 67 18 126/67 H 99 03/25/20 11:11 03/25/20 11:11 03/25/20 11:11 03/25/20 11:11 03/25/20 11:11 Intake & Output 03/24/20 03/25/20 03/26/20 06:59 06:59 06:59 Intake Total 100 100 Output Total 550 900 Balance -450 -800 Weight 100 kg General appearance: PRESENT: cooperative, other Exam: Diaphoretic Head exam: PRESENT: atraumatic, normocephalic Eye exam: PRESENT: EOMI, PERRLA. ABSENT: scleral icterus Mouth exam: PRESENT: moist, neck supple Neck exam: ABSENT: tenderness, thyromegaly, tracheal deviation Respiratory exam: PRESENT: tachypnea - Mild Cardiovascular exam: PRESENT: tachycardia Vascular exam: PRESENT: pallor GI/Abdominal exam: PRESENT: soft, tenderness - Epigastric/right upper quadrant tenderness that is mild.. ABSENT: distended, rebound, rigid Rectal exam: PRESENT: deferred Extremities exam: ABSENT: clubbing Musculoskeletal exam: ABSENT: deformity Neurological exam: PRESENT: alert, awake, oriented to person, oriented to place, oriented to time, oriented to situation, CN II-XII grossly intact. ABSENT: motor sensory deficit Psychiatric exam: ABSENT: agitated, anxious, depressed Focused psych exam: ABSENT: delusional Skin exam: ABSENT: cyanosis, erythema, jaundice Results Laboratory Results: 03/25/20 08:47 03/25/20 08:47 03/24/20 03/24/20 03/24/20 14:58 14:58 14:58 WBC 22.3 H RBC 4.47 Hgb 13.6 Hct 39.6 MCV 89 MCH 30.6 MCHC 34.4 RDW 14.9 H Plt Count 349 Seg Neutrophils % Not Reportable Sodium 135.4 L Potassium 3.8 Chloride 103 Carbon Dioxide 22 Anion Gap 10 BUN 16 Creatinine 0.58 Est GFR ( Amer) > 60 Glucose 106 Lactic Acid Calcium 9.4 Total Bilirubin 0.6 AST 65 H Alkaline Phosphatase 137 H Total Protein 7.5 Albumin 4.1 Urine Color YELLOW Urine Appearance CLEAR Urine pH 7.0 Ur Specific [place] 1.014 Urine Protein 30 H Urine Glucose (UA) NEGATIVE Urine Ketones NEGATIVE Urine Blood LARGE H Urine Nitrite NEGATIVE Ur Leukocyte Esterase TRACE H Urine WBC (Auto) 9 Urine RBC (Auto) 94 03/25/20 03/25/20 03/25/20 08:47 08:47 08:47 WBC 17.2 H RBC 4.07 Hgb 12.5 Hct 36.7 MCV 90 MCH 30.6 MCHC 33.9 RDW 14.9 H Plt Count 321 Seg Neutrophils % Not Reportable Sodium 136.6 L Potassium 3.3 L Chloride 104 Carbon Dioxide 23 Anion Gap 10 BUN 12 Creatinine 0.59 Est GFR ( Amer) > 60 Glucose 174 H Lactic Acid 2.1 Calcium 8.7 Total Bilirubin 0.7 AST 38 H Alkaline Phosphatase 117 Total Protein 6.2 L Albumin 3.3 L Urine Color Urine Appearance Urine pH Ur Specific [place] Urine Protein Urine Glucose (UA) Urine Ketones Urine Blood Urine Nitrite Ur Leukocyte Esterase Urine WBC (Auto) Urine RBC (Auto) Impressions: Abdomen/Pelvis CTA 03/24/20 14:43 IMPRESSION: No abdominal aortic aneurysm or dissection. Enlarged uterus. No significant acute findings in the abdomen or pelvis. Chest/Abdomen CTA 03/24/20 14:43 IMPRESSION: NORMAL CTA OF THE CHEST. NO PULMONARY EMBOLI. Abdomen Ultrasound 03/24/20 18:07 IMPRESSION: Distended gallbladder without obvious additional biliary abnormality. Assessment & Plan - Diagnosis (1) Right lower quadrant abdominal pain Is this a current diagnosis for this admission?: Yes - Plan Summary Plan Summary: 24-year-old female with a 2-day history of sharp, stabbing, unrelenting right upper quadrant pain. Her right upper quadrant ultrasound is normal. There is no evidence of stones, sludge, gallbladder wall thickening, or pericholecystic fluid. Her bilirubin and alkaline phosphatase are normal today. CT scan shows a large amount of stool within the colon, but no other significant abnormality. The patient also had a CT scan of the chest, which is normal. The patient appears to have severe right upper quadrant pain. At this time I am unsure the cause. Could be related to gastritis, constipation, or occult g allbladder disease. The patient has not had a bowel movement in more than 48 hours. I will provide her with cathartics, in order to facilitate a BM. I will also start her on Carafate and give her a now dose of viscous lidocaine. If these interventions are effective, further work-up for her gallbladder is unnecessary. If these interventions fail to provide her any relief, HIDA scan can be performed to evaluate for gallbladder filling. If the gallbladder fills with contrast on HIDA scan, acute cholecystitis is impossible.
[2020-03-25] MEDS: DOCUSATE SODIUM 100 MG CAPSULE PO SCH ×2 (14:23→17:56)
[2020-03-25] MEDS: SUCRALFATE 1 GM TABLET PO SCH ×2 (16:00→22:06)
--- NOTE | 2020-03-25 21:18 | Progress Note ---
Provider Note Provider Note: Patient was reexamined. She experienced a good amount of relief with Carafate and viscous lidocaine. I believe her symptoms to be related to gastritis and/or peptic ulcer disease. Minimize NSAIDs and steroids. Avoid caffeine, nicotine, alcohol, and soda pop. Continue with famotidine 20 mg p.o. twice daily and Carafate 1 g 4 times per day.
[2020-03-26] MEDS: AMPICILLIN SODIUM/SULBACTAM NA 3 GM in NORMAL SALINE 100 ML IV SCH ×5 (00:27→23:46)
[2020-03-26] MEDS: OXYCODONE-ACETAMINOPHEN 5-325 MG TABLET PO PRN ×2 (00:49→15:58)
[2020-03-26] MEDS: IBUPROFEN 800 MG TABLET PO SCH ×2 (05:27→13:40)
[2020-03-26] MEDS: SUCRALFATE 1 GM TABLET PO SCH ×4 (09:30→22:16)
[2020-03-26] MEDS: FAMOTIDINE INJ/PF 20 MG/2 ML SDV IV SCH ×2 (09:30→22:15)
[2020-03-26] MEDS: DOCUSATE SODIUM 100 MG CAPSULE PO SCH ×2 (09:30→17:14)
--- NOTE | 2020-03-26 09:53 | RADIOLOGY REPORT (SQ) ---
EXAM DESCRIPTION: NM HIDA SCAN IMAGES COMPLETED DATE/TIME: 03/26/2020 9:10 am REASON FOR STUDY: RUQ pain. Eval for cholecystitis COMPARISON: None. RADIONUCLIDE AND DOSE: DOSAGE RADIONUCLIDE: 5.4 millicuries Tc99m Mebrofenin. DOSAGE MORPHINE: Not required. The route of agent administration: Intravenous TECHNIQUE: Serial imaging right upper quadrant up to 60 minutes following injection of radionuclide. Patient imaged AP and Right Lateral. LIMITATIONS: None. FINDINGS: LIVER: Normal visualization without areas of photopenia. INTRA-HEPATIC BILE DUCTS: Temporal visualization normal. No dilatation. COMMON BILE DUCT: Normal without dilatation or delayed visualization. GALLBLADDER: Normal visualization. OTHER: No other significant finding. IMPRESSION: NORMAL STUDY WITHOUT CYSTIC OR COMMON DUCT OBSTRUCTION. TECHNICAL DOCUMENTATION: JOB ID: [id number] 2010 [employer]- All Rights Reserved Reading location - IP/workstation name: [email or web address]
[2020-03-26 12:17] LABS: ABSOLUTE EOSINOPHILS # (AUTO) 0.2 10^3/uL (0.0-0.6); ABSOLUTE NEUT (AUTO) 10.8 10^3/uL (1.7-8.2); BASOPHILS % (AUTO) 0.2 % (0-2); EOSINOPHILS % (AUTO) 1.7 % (0-6); HEMATOCRIT 36.2 % (36.0-47.0); HEMOGLOBIN 12.3 g/dL (12.0-15.5); LYMPHOCYTES % (AUTO) 7.7 % (13-45); MEAN CORPUSCULAR HEMOGLOBIN 30.5 pg (27.0-33.4); MEAN CORPUSCULAR VOLUME 90 fl (80-97); MONOCYTES % (AUTO) 7.7 % (3-13); PLATELET COUNT 341 10^3/uL (150-450); RED BLOOD COUNT 4.04 10^6/uL (3.72-5.28); RED CELL DISTRIBUTION WIDTH 14.8 % (11.5-14.0); SEGMENTED NEUTROPHILS % (AUTO) 82.7 % (42-78); TOTAL CELLS COUNTED % (AUTO) 100 %; WHITE BLOOD COUNT 13.1 10^3/uL (4.0-10.5)
[2020-03-26] MEDS: RINGERS SOLUTION,LACTATED 1,000 ML IV PRN (13:40)
--- NOTE | 2020-03-26 15:40 | PDOC PROGRESS REPORT ---
Subjective Progress Note for:: 03/26/20 Subjective:: Epigastric pains Reason For Visit: POST OP FEVER,ENDOMETRITIS Physical Exam Vital Signs: Temp Pulse Resp BP Pulse Ox 97.7 F 79 16 121/85 99 03/26/20 10:00 03/26/20 09:38 03/26/20 09:38 03/26/20 09:38 03/26/20 09:38 Intake & Output 03/25/20 03/26/20 03/27/20 06:59 06:59 06:59 Intake Total 100 3500 100 Output Total 550 3600 Balance -450 -100 100 Weight 100 kg 98.6 kg Exam: Abdomen is soft with mild epigastric tenderness she did have more pains from the right shoulder radiating to the right side of the abdomen but have since quite decreased in severity Results Laboratory Results: 03/26/20 11:49 03/25/20 08:47 03/26/20 11:49 WBC 13.1 H RBC 4.04 Hgb 12.3 Hct 36.2 MCV 90 MCH 30.5 MCHC 34.0 RDW 14.8 H Plt Count 341 Seg Neutrophils % 82.7 H 03/24/20 14:58 Clean Catch Midstream Urine Culture - Final Mixed Urogenital [place] Impressions: Abdomen/Pelvis CTA 03/24/20 14:43 IMPRESSION: No abdominal aortic aneurysm or dissection. Enlarged uterus. No significant acute findings in the abdomen or pelvis. Chest/Abdomen CTA 03/24/20 14:43 IMPRESSION: NORMAL CTA OF THE CHEST. NO PULMONARY EMBOLI. Abdomen Ultrasound 03/24/20 18:07 IMPRESSION: Distended gallbladder without obvious additional biliary abnormality. Hepatobiliary Scan Nuclear Medicine 03/26/20 00:00 IMPRESSION: NORMAL STUDY WITHOUT CYSTIC OR COMMON DUCT OBSTRUCTION. Assessment & Plan - Diagnosis (1) Abdominal pain Qualifiers: Abdominal location: right upper quadrant Qualified Code(s): R10.11 - Right upper quadrant pain Is this a current diagnosis for this admission?: Yes (2) Epigastric pain Is this a current diagnosis for this admission?: Yes (3) Leukocytosis Qualifiers: Leukocytosis type: unspecified Qualified Code(s): D72.829 - Elevated white blood cell count, unspecified Is this a current diagnosis for this admission?: Yes - Time Critical Time spent with patient: 15-24 minutes Anticipated Discharge Disposition: Home, Self Care Anticipated Discharge Timeframe: within 48 hours - Plan Summary Plan Summary: 24-year-old female with right shoulder pains radiating to the abdomen and also with pains in the right upper quadrant and epigastric areas with some tenderness. She had a CAT scan of the abdomen and ultrasound of the gallbladder which both showed normal gallbladder. She had a HIDA scan today which showed normal HIDA scan. Therefore her symptomatology is unlikely coming from her gallbladder. Impression is gastritis. She should continue on the anti-gastritis regimen ordered by Dr. Flores yesterday. We will sign off.
[2020-03-26 15:42] LABS: HEMATOCRIT 37.9 % (36.0-47.0); MEAN CORPUSCULAR HEMOGLOBIN 30.8 pg (27.0-33.4); MEAN CORPUSCULAR HGB CONC 34.4 g/dL (32.0-36.0); MEAN CORPUSCULAR VOLUME 90 fl (80-97); PLATELET COUNT 347 10^3/uL (150-450); RED BLOOD COUNT 4.23 10^6/uL (3.72-5.28); RED CELL DISTRIBUTION WIDTH 14.9 % (11.5-14.0)
[2020-03-26 16:03] LABS: ALBUMIN 3.4 g/dL (3.5-5.0); ALKALINE PHOSPHATASE 119 U/L (38-126); ANION GAP 8 (5-19); ASPARTATE AMINO TRANSFERASE 27 U/L (14-36); BILIRUBIN,DIRECT 0.2 mg/dL (0.0-0.4); BILIRUBIN,TOTAL 0.5 mg/dL (0.2-1.3); BLOOD UREA NITROGEN 11 mg/dL (7-20); CALCIUM 9.2 mg/dL (8.4-10.2); CARBON DIOXIDE 26 mmol/L (22-30); CHLORIDE 104 mmol/L (98-107); GLUCOSE 91 mg/dL (75-110); POTASSIUM 3.9 mmol/L (3.6-5.0); TOTAL PROTEIN 6.2 g/dL (6.3-8.2); URIC ACID 3.2 mg/dL (2.5-6.2)
--- NOTE | 2020-03-26 16:38 | PDOC PROGRESS REPORT ---
Subjective Progress Note for:: 03/26/20 Subjective:: Patient reports feeling somewhat better today but still feels shoulder pain on right, RUQ and epigastric pain off and on. This afternoon she also has a headache She has no chest pain, SOB, fever, chills, n/v. She is voiding well and does say she has had multiple BM since surgery. No diarrhea. Reason For Visit: POST OP FEVER,ENDOMETRITIS Physical Exam - Physical Exam Vital Signs: Temp Pulse Resp BP Pulse Ox 97.7 F 79 16 121/85 99 03/26/20 10:00 03/26/20 09:38 03/26/20 09:38 03/26/20 09:38 03/26/20 09:38 Intake & Output 03/25/20 03/26/20 03/27/20 06:59 06:59 06:59 Intake Total 100 3500 100 Output Total 550 3600 Balance -450 -100 100 Weight 100 kg 98.6 kg General appearance: PRESENT: no acute distress, cooperative, disheveled Respiratory exam: PRESENT: clear to auscultation brionna Cardiovascular exam: PRESENT: RRR, +S1, +S2 GI/Abdominal exam: PRESENT: normal bowel sounds, soft, tenderness - in epigastric area on palpation. No pain on palpation of fundus. Mild RUQ pain but no rebound or guarding Neurological exam: PRESENT: alert, awake, oriented to person, oriented to place, oriented to time, oriented to situation, CN II-XII grossly intact. ABSENT: motor sensory deficit Psychiatric exam: PRESENT: appropriate affect, normal mood. ABSENT: homicidal ideation, suicidal ideation Skin exam: PRESENT: dry, intact, warm. ABSENT: cyanosis, rash - Obstetrical Exam External Genitalia: normal - small amount of blood. Fundal Height: u/u - u/2 Result Laboratory Results: 03/26/20 11:49 03/25/20 08:47 03/26/20 11:49 WBC 13.1 H RBC 4.04 Hgb 12.3 Hct 36.2 MCV 90 MCH 30.5 MCHC 34.0 RDW 14.8 H Plt Count 341 Seg Neutrophils % 82.7 H 03/24/20 14:58 Clean Catch Midstream Urine Culture - Final Mixed Urogenital [place] Impressions: Abdomen/Pelvis CTA 03/24/20 14:43 IMPRESSION: No abdominal aortic aneurysm or dissection. Enlarged uterus. No significant acute findings in the abdomen or pelvis. Chest/Abdomen CTA 03/24/20 14:43 IMPRESSION: NORMAL CTA OF THE CHEST. NO PULMONARY EMBOLI. Abdomen Ultrasound 03/24/20 18:07 IMPRESSION: Distended gallbladder without obvious additional biliary abnormality. Hepatobiliary Scan Nuclear Medicine 03/26/20 00:00 IMPRESSION: NORMAL STUDY WITHOUT CYSTIC OR COMMON DUCT OBSTRUCTION. Assessment & Plan - Diagnosis (1) Fever of unknown origin following delivery, Is this a current diagnosis for this admission?: Yes (2) Right upper quadrant pain Is this a current diagnosis for this admission?: Yes (3) Epigastric pain Is this a current diagnosis for this admission?: Yes (4) Right lower quadrant abdominal pain Is this a current diagnosis for this admission?: Yes (5) Abdominal pain Qualifiers: Abdominal location: right upper quadrant Qualified Code(s): R10.11 - Right upper quadrant pain Is this a current diagnosis for this admission?: Yes (6) Leukocytosis Qualifiers: Leukocytosis type: unspecified Qualified Code(s): D72.829 - Elevated white blood cell count, unspecified Is this a current diagnosis for this admission?: Yes (7) S/P primary low transverse Is this a current diagnosis for this admission?: Yes (8) RUQ pain Is this a current diagnosis for this admission?: Yes (9) Epigastric abdominal pain Is this a current diagnosis for this admission?: Yes (10) Fever Qualifiers: Fever type: unspecified Qualified Code(s): R50.9 - Fever, unspecified Is this a current diagnosis for this admission?: Yes - Time Time Spent with patient: 15-24 minutes - Plan Summary Plan Summary: 24 yo with fever unknown origin during period, RUQ & epigastric pain . She is s/p Primary CS 6 days ago. -Tmax 100.3 in ED on arrival. Other VSS -exam: CS dry and intact with no redness or erythema. Period type bleeding: no purulent VD. Pain on palpation RUQ, epigastric -Labs show elevated WBC 22 --> 17.2 --> 13.1 -CT chest negative. CT abdomen negative except mildly enlarged uterus which is expected post and distended gall bladder. General surgery consulted and HIDA done which was negative. THeir impression is gastritis and meds ordered per Dr. Young -Continue Unasyn 3gms ordered q 6 hrs as WBC is falling -blood cultures negative to date. UC negative -Tolerating PO well -Repeat labs in AM -Elevated b/p today. Will repeat a PIH panel. No LÓPEZ, CP, SOB or vision changes -Plan for antibiotics and PIH work up -Pain medications ordered prn avoiding motrin d/t gastritis
[2020-03-26] MEDS ORDERED: CYCLOBENZAPRINE HCL 10 MG TABLET PO PRN (21:31)
[2020-03-26] MEDS ORDERED: CYCLOBENZAPRINE HCL 10 MG TABLET ONE (22:01)
[2020-03-26] MEDS: LABETALOL HCL 200 MG TABLET PO SCH (22:35)
[2020-03-27] MEDS: AMPICILLIN SODIUM/SULBACTAM NA 3 GM in NORMAL SALINE 100 ML IV SCH ×2 (06:10→11:51)
[2020-03-27 09:06] LABS: HEMATOCRIT 35.3 % (36.0-47.0); HEMOGLOBIN 12.4 g/dL (12.0-15.5); MEAN CORPUSCULAR HEMOGLOBIN 31.1 pg (27.0-33.4); MEAN CORPUSCULAR HGB CONC 35.1 g/dL (32.0-36.0); MEAN CORPUSCULAR VOLUME 89 fl (80-97); PLATELET COUNT 370 10^3/uL (150-450); RED BLOOD COUNT 3.98 10^6/uL (3.72-5.28); RED CELL DISTRIBUTION WIDTH 14.7 % (11.5-14.0); WHITE BLOOD COUNT 9.7 10^3/uL (4.0-10.5)
--- NOTE | 2020-03-27 10:53 | PDOC DISCHARGE SUMMARY ---
Impression - Admit/DC Date/PCP Admission Date/Primary Care Provider: 03/24/20 22:22 NE ANDERSON PA-C Discharge Date: 03/27/20 - Discharge Diagnosis (1) Epigastric abdominal pain Is this a current diagnosis for this admission?: Yes (2) Epigastric pain Is this a current diagnosis for this admission?: Yes (3) Fever Is this a current diagnosis for this admission?: Yes (4) Leukocytosis Is this a current diagnosis for this admission?: Yes (5) RUQ pain Is this a current diagnosis for this admission?: Yes (6) S/P primary low transverse Is this a current diagnosis for this admission?: Yes - Assessment Summary: 24 year old female who is 6 days post after primary delivery. She presented to the emergency department chief complaint of right upper quadrant pain and shortness of breath that began this morning. Patient states that yesterday she had some right shoulder pain and she thought she strained it or pulled something. Then today when she got up in the morning it was hard to sit up because of the right upper quadrant pain. Patient states she is short of breath because every time she takes a deep breath it hurts in the right upper quadrant. Patient is 5 days postop from emergency . She states it was an emergency because of a nuchal cord. Patient denies travel history trauma history sick contacts no bad food exposure. She reports a temp at home of 100 F and felt chills. She denies bowel issues and states last bowel movement was on Monday night.NO diarrhea . Did not strain. Reports it felt different when she voided today: burning. Denies vomiting but when pain is bad she feels nausea. Reports vaginal bleeding like a period. It has not increased. No purulent VD She was admitted for antibiotics and General Surgery consulted HIDA done and negative. Pt reports feels somewhat better - afebrile since 03/25. Reviewed possible also mild preE - labs good and only mild intermittent LÓPEZ and mild BPs - reviewed treatments for mild preE typically outpatient in absence of severe range BPs. She will f/u on Monday for re-evaluation - Additional Information Resuscitation Status: Full Code Discharge Diet: As Tolerated Discharge Activity: Activity As Tolerated Referrals: NE ANDERSON PA-C [Primary Care Provider] - Follow up as needed Prescriptions: Famotidine [Acid Controller] 20 mg PO BID 30 Days #60 tablet Sucralfate [Carafate 1 gm Tablet] 1 gm PO ACHS 10 Days #20 tablet Clindamycin HCl 300 mg PO TID 10 Days #30 capsule Labetalol HCl [Normodyne 200 mg Tablet] 200 mg PO Q12 30 Days #60 tablet Home Medications: Ibuprofen [Motrin 800 mg Tablet] 800 mg PO Q8HP PRN #90 tablet 03/21/20 Oxycodone HCl/Acetaminophen [Percocet 5-325 mg Tablet] 1 tab PO Q4HP PRN #30 tablet 03/21/20 Vit/Dha [ Multi + Dha Capsule] 1 cap PO DAILY #90 capsule 03/21/20 Clindamycin HCl 300 mg PO TID 10 Days #30 capsule 03/27/20 Docusate Sodium [Colace 100 mg Capsule] 200 mg PO BID capsule 03/27/20 Famotidine [Acid Controller] 20 mg PO BID 30 Days #60 tablet 03/27/20 Labetalol HCl [Normodyne 200 mg Tablet] 200 mg PO Q12 30 Days #60 tablet 03/27/20 Sucralfate [Carafate 1 gm Tablet] 1 gm PO ACHS 10 Days #20 tablet 03/27/20 History of Present Illiness History of Present Illness: CHAO WONG is a 24 year old female who is 6 days post after primary delivery. She presented to the emergency department chief complaint of right upper quadrant pain and shortness of breath that began this morning. Patient states that yesterday she had some right shoulder pain and she thought she strained it or pulled something. Then today when she got up in the morning it was hard to sit up because of the right upper quadrant pain. Patient states she is short of breath because every time she takes a deep breath it hurts in the right upper quadrant. Patient is 5 days postop from emergency . She states it was an emergency because of a nuchal cord. Patient denies travel history trauma history sick contacts no bad food exposure. She reports a temp at home of 100 F and felt chills. She denies bowel issues and states last bowel movement was on Monday night.NO diarrhea . Did not strain. Reports it felt different when she voided today: burning. Denies vomiting but when pain is bad she feels nausea. Reports vaginal bleeding like a period. It has not increased. No purulent VD She was admitted for antibiotics and General Surgery consulted HIDA done and negative. Pt reports feels somewhat better - afebrile since 03/25. Reviewed possible also mild preE - labs good and only mild intermittent LÓPEZ and mild BPs - reviewed treatments for mild preE typically outpatient in absence of severe range BPs. She will f/u on Monday for re-evaluation Hospital Course Hospital Course: 24 year old female who is 6 days post after primary delivery. She presented to the emergency department chief complaint of right upper quadrant pain and shortness of breath that began this morning. Patient states that yesterday she had some right shoulder pain and she thought she strained it or pulled something. Then today when she got up in the morning it was hard to sit up because of the right upper quadrant pain. Patient states she is short of breath because every time she takes a deep breath it hurts in the right upper quadrant. Patient is 5 days postop from emergency . She states it was an emergency because of a nuchal cord. Patient denies travel history trauma history sick contacts no bad food exposure. She reports a temp at home of 100 F and felt chills. She denies bowel issues and states last bowel movement was on Monday night.NO diarrhea . Did not strain. Reports it felt different when she voided today: burning. Denies vomiting but when pain is bad she feels nausea. Reports vaginal bleeding like a period. It has not increased. No purulent VD She was admitted for antibiotics and General Surgery consulted HIDA done and negative. Pt reports feels somewhat better - afebrile since 03/25. Reviewed possible also mild preE - labs good and only mild intermittent LÓPEZ and mild BPs - reviewed treatments for mild preE typically outpatient in absence of severe range BPs. She will f/u on Monday for re-evaluation Physical Exam - Physical Exam Vital Signs: Temp Pulse Resp BP Pulse Ox 98.0 F 78 18 126/77 H 100 03/26/20 20:07 03/26/20 20:07 03/26/20 20:07 03/26/20 20:07 03/26/20 20:07 Intake & Output 03/26/20 03/27/20 03/28/20 06:59 06:59 06:59 Intake Total 3500 400 Output Total 3600 Balance -100 400 Weight 98.6 kg General appearance: PRESENT: no acute distress, well-developed, well-nourished Head exam: PRESENT: atraumatic, normocephalic Neck exam: PRESENT: full ROM. ABSENT: carotid bruit, JVD, lymphadenopathy, thyromegaly Respiratory exam: PRESENT: clear to auscultation brionna, symmetrical, unlabored Cardiovascular exam: PRESENT: RRR. ABSENT: diastolic murmur, rubs, systolic murmur GI/Abdominal exam: PRESENT: normal bowel sounds, soft. ABSENT: distended, guarding, mass, organolmegaly, rebound, tenderness Rectal exam: PRESENT: deferred Neurological exam: PRESENT: alert, awake, oriented to person, oriented to place, oriented to time, oriented to situation, CN II-XII grossly intact. ABSENT: motor sensory deficit Psychiatric exam: PRESENT: appropriate affect, normal mood. ABSENT: homicidal ideation, suicidal ideation Skin exam: PRESENT: dry, intact, warm. ABSENT: cyanosis, rash - Obstetrical Exam External Genitalia: normal - small amount of blood. Results Laboratory Results: WBC 9.7 10^3/uL (4.0-10.5) 03/27/20 08:14 RBC 3.98 10^6/uL (3.72-5.28) 03/27/20 08:14 Hgb 12.4 g/dL (12.0-15.5) 03/27/20 08:14 Hct 35.3 % (36.0-47.0) L 03/27/20 08:14 MCV 89 fl (80-97) 03/27/20 08:14 MCH 31.1 pg (27.0-33.4) 03/27/20 08:14 MCHC 35.1 g/dL (32.0-36.0) 03/27/20 08:14 RDW 14.7 % (11.5-14.0) H 03/27/20 08:14 Plt Count 370 10^3/uL (150-450) 03/27/20 08:14 Lymph % (Auto) 7.7 % (13-45) L 03/26/20 11:49 Crenshaw % (Auto) 7.7 % (3-13) 03/26/20 11:49 Eos % (Auto) 1.7 % (0-6) 03/26/20 11:49 Baso % (Auto) 0.2 % (0-2) 03/26/20 11:49 Absolute Neuts (auto) 10.8 10^3/uL (1.7-8.2) H 03/26/20 11:49 Absolute Lymphs (auto) 1.0 10^3/uL (0.5-4.7) 03/26/20 11:49 Absolute Monos (auto) 1.0 10^3/uL (0.1-1.4) 03/26/20 11:49 Absolute Eos (auto) 0.2 10^3/uL (0.0-0.6) 03/26/20 11:49 Absolute Basos (auto) 0.0 10^3/uL (0.0-0.2) 03/26/20 11:49 Total Counted 100 03/25/20 08:47 Seg Neutrophils % 82.7 % (42-78) H 03/26/20 11:49 Seg Neuts % (Manual) 92 % (42-78) H 03/25/20 08:47 Lymphocytes % (Manual) 4 % (13-45) L 03/25/20 08:47 Monocytes % (Manual) 3 % (3-13) 03/25/20 08:47 Eosinophils % (Manual) 1 % (0-6) 03/25/20 08:47 Basophils % (Manual) 0 % (0-2) 03/25/20 08:47 Abs Neuts (Manual) 15.8 10^3/uL (1.7-8.2) H 03/25/20 08:47 Abs Lymphs (Manual) 0.7 10^3/uL (0.5-4.7) 03/25/20 08:47 Abs Monocytes (Manual) 0.5 10^3/uL (0.1-1.4) 03/25/20 08:47 Absolute Eos (Manual) 0.2 10^3/uL (0.0-0.6) 03/25/20 08:47 Abs Basophils (Manual) 0.0 10^3/uL (0.0-0.2) 03/25/20 08:47 Large Platelets PRESENT 03/24/20 14:58 Platelet Comment ADEQUATE 03/25/20 08:47 Polychromasia SLIGHT 03/24/20 14:58 Anisocytosis SLIGHT 03/25/20 08:47 Sodium 137.7 mmol/L (137-145) 03/26/20 15:35 Potassium 3.9 mmol/L (3.6-5.0) 03/26/20 15:35 Chloride 104 mmol/L (98-107) 03/26/20 15:35 Carbon Dioxide 26 mmol/L (22-30) 03/26/20 15:35 Anion Gap 8 (5-19) 03/26/20 15:35 BUN 11 mg/dL (7-20) 03/26/20 15:35 Creatinine 0.62 mg/dL (0.52-1.25) 03/26/20 15:35 Est GFR ( Amer) > 60 (>60) 03/26/20 15:35 Est GFR (MDRD) Non-Af > 60 (>60) 03/26/20 15:35 Glucose 91 mg/dL (75-110) 03/26/20 15:35 Lactic Acid 2.1 mmol/L (0.7-2.1) 03/25/20 08:47 Uric Acid 3.2 mg/dL (2.5-6.2) 03/26/20 15:35 Calcium 9.2 mg/dL (8.4-10.2) 03/26/20 15:35 Total Bilirubin 0.5 mg/dL (0.2-1.3) 03/26/20 15:35 Direct Bilirubin 0.2 mg/dL (0.0-0.4) 03/26/20 15:35 Neonat Total Bilirubin Not Reportable 03/26/20 15:35 Neonat Direct Bilirubin Not Reportable 03/26/20 15:35 Neonat Indirect Bili Not Reportable 03/26/20 15:35 AST 27 U/L (14-36) 03/26/20 15:35 ALT 54 U/L (<35) H 03/26/20 15:35 Alkaline Phosphatase 119 U/L (38-126) 03/26/20 15:35 Lactate Dehydrogenase 184 U/L (120-246) 03/26/20 15:35 Total Protein 6.2 g/dL (6.3-8.2) L 03/26/20 15:35 Albumin 3.4 g/dL (3.5-5.0) L 03/26/20 15:35 Urine Color YELLOW 03/24/20 14:58 Urine Appearance CLEAR 03/24/20 14:58 Urine pH 7.0 (5.0-9.0) 03/24/20 14:58 Ur Specific [place] 1.014 03/24/20 14:58 Urine Protein 30 mg/dL (NEGATIVE) H 03/24/20 14:58 Urine Glucose (UA) NEGATIVE mg/dL (NEGATIVE) 03/24/20 14:58 Urine Ketones NEGATIVE mg/dL (NEGATIVE) 03/24/20 14:58 Urine Blood LARGE (NEGATIVE) H 03/24/20 14:58 Urine Nitrite NEGATIVE (NEGATIVE) 03/24/20 14:58 Urine Bilirubin NEGATIVE (NEGATIVE) 03/24/20 14:58 Urine Urobilinogen NEGATIVE mg/dL (<2.0) 03/24/20 14:58 Ur Leukocyte Esterase TRACE (NEGATIVE) H 03/24/20 14:58 Urine WBC (Auto) 9 /HPF 03/24/20 14:58 Urine RBC (Auto) 94 /HPF 03/24/20 14:58 Squamous Epi Cells Auto 2 /HPF 03/24/20 14:58 U Non-Squamous Epis Auto 2 /HPF 03/24/20 14:58 Urine Mucus (Auto) RARE /LPF 03/24/20 14:58 Urine Ascorbic Acid NEGATIVE (NEGATIVE) 03/24/20 14:58 Impressions: Abdomen/Pelvis CTA 03/24/20 14:43 IMPRESSION: No abdominal aortic aneurysm or dissection. Enlarged uterus. No significant acute findings in the abdomen or pelvis. Chest/Abdomen CTA 03/24/20 14:43 IMPRESSION: NORMAL CTA OF THE CHEST. NO PULMONARY EMBOLI. Abdomen Ultrasound 03/24/20 18:07 IMPRESSION: Distended gallbladder without obvious additional biliary abnormality. Hepatobiliary Scan Nuclear Medicine 03/26/20 00:00 IMPRESSION: NORMAL STUDY WITHOUT CYSTIC OR COMMON DUCT OBSTRUCTION. Stroke Is this a Stroke Patient?: No Acute Heart Failure - Is this a Heart Failure Patient?: No
[2020-03-27] MEDS: DOCUSATE SODIUM 100 MG CAPSULE PO SCH (11:49)
[2020-03-27] MEDS: LABETALOL HCL 200 MG TABLET PO SCH (11:49)
[2020-03-27] MEDS: SUCRALFATE 1 GM TABLET PO SCH ×2 (11:49→17:31)
[2020-03-27] MEDS: OXYCODONE-ACETAMINOPHEN 5-325 MG TABLET PO PRN (11:50)
[2020-03-27] MEDS: FAMOTIDINE INJ/PF 20 MG/2 ML SDV IV SCH (11:51)
[2020-03-27 15:04] VITALS: BP 106/59
== END 2020-03-27 15:00 | disposition home or self-care (01) ==
LOC: ER 14:17 → EH 22:22 → 2N 03-25 00:29
PROVIDERS: ADMIT Obstetrics & Gynecology; ATTEND Obstetrics & Gynecology
DX: O90.89 Other complications of the puerperium, not elsewhere classified (principal); R10.13 Epigastric pain; R10.11 Right upper quadrant pain; R10.31 Right lower quadrant pain; R06.02 Shortness of breath; D72.829 Elevated white blood cell count, unspecified; M25.511 Pain in right shoulder; O86.4 Pyrexia of unknown origin following delivery; R30.0 Dysuria; R51 Headache; R11.0 Nausea; O86.12 Endometritis following delivery; Z98.890 Other specified postprocedural states; R23.1 Pallor; R00.0 Tachycardia, unspecified; R61 Generalized hyperhidrosis
CPT/HCPCS: 96376; 99285; 96361; 96374; 96375; 36415 ×4; 87040 ×2; 87086; 83605; 83615; 84550; 85025 ×3; 85027; 80053 ×3; 81001; 76705; 78226; 71275; 74174; G0378 ×5; A9537; J0295 ×3; J3490 ×3; J1885; J2270; J2405; J7050 ×3; J7030; J7120 ×2; S0028 ×3; Q9969